=== PATIENT | male | born 1955 | race Caucasian/White ===

== ENCOUNTER 2023-01-29 05:09 | Observation (INO) ==
--- NOTE | 2023-01-07 11:30 | PAT Medication Instructions ---
Medication Instructions Date of Service January 07, 2023 Home Medications atorvastatin 10 mg tablet 10 mg PO QAM finasteride 5 mg tablet 5 mg PO QAM glipizide 5 mg tablet 5 mg PO BID levothyroxine 25 mcg tablet 25 mcg PO QAM meloxicam 15 mg tablet 15 mg PO QAM metformin 500 mg tablet 1,000 mg PO BID multivitamin 1 tab PO QAM tamsulosin 0.4 mg capsule 0.4 mg PO QAM ASK your surgeon for instructions meloxicam 15 mg tablet 15 mg PO QAM DO NOT take the morning of surgery glipizide 5 mg tablet 5 mg PO BID multivitamin 1 tab PO QAM Take morning of surgery With a small sip of water, OTHERWISE NOTHING TO EAT OR DRINK AFTER MIDNIGHT: atorvastatin 10 mg tablet 10 mg PO QAM finasteride 5 mg tablet 5 mg PO QAM levothyroxine 25 mcg tablet 25 mcg PO QAM tamsulosin 0.4 mg capsule 0.4 mg PO QAM Take evening before surgery glipizide 5 mg tablet 5 mg PO BID metformin 500 mg tablet 1,000 mg PO BID Other Notes If you have any questions please call us at [phone] or [phone] or [phone] or [phone]
--- NOTE | 2023-01-16 10:52 | Anesthesiology Consultation ---
Date of Service January 16, 2023 Assessment & Plan (1) Encounter for pre-operative examination: - check BSG am DOS. - Outpatient joint assessment: Patient is currently scheduled for inpatient pathway. If re-evaluated and patient/surgeon requests outpatient pathway, patient is acceptable candidate for outpatient joint program from anesthesia standpoint pending surgeon's office assessment of pt motivation/support/completion of same day joint program preop requirements. Chart Review Chart Review: Acceptable Risk for Surgery and Patient seen in Pre Admission Testing Teaching & Discussion Pre-Anesthesia Teaching/Discussion Notes: Instructed NPO after midnight before surgery, except medications with 15 cc of water. Medication instructions provided according to the PAT guidelines. History Surgery Operation Date: 01/29/23 09:50 Proposed Procedures p Right Total Knee Arthroplasty - Ace Back MD Height/Weight Height: 5 ft 11 in Weight: 86.3 kg Allergies Allergy/AdvReac Type Severity Reaction Status Date / Time No Known Allergies Allergy Verified 01/07/23 08:02 Medications Home Medications Medication Instructions Recorded Confirmed Last Taken atorvastatin 10 mg tablet 10 mg PO QAM 01/07/23 01/07/23 Unknown finasteride 5 mg tablet 5 mg PO QAM 01/07/23 01/07/23 Unknown glipizide 5 mg tablet 5 mg PO BID 01/07/23 01/07/23 Unknown levothyroxine 25 mcg tablet 25 mcg PO QAM 01/07/23 01/07/23 Unknown meloxicam 15 mg tablet 15 mg PO QAM 01/07/23 01/07/23 Unknown metformin 500 mg tablet 1,000 mg PO BID 01/07/23 01/07/23 Unknown multivitamin 1 tab PO QAM 01/07/23 01/07/23 Unknown tamsulosin 0.4 mg capsule 0.4 mg PO QAM 01/07/23 01/07/23 Unknown Past Medical History Medical History BPH (benign prostatic hyperplasia) Hypothyroidism Diabetes mellitus, type 2 NIDDM Hyperlipidemia Patient denies h/o stroke, seizures, heart attack, heart failure, HTN, blood clots/DVTs or blood transfusions. Exercise / Class Metabolic Activity II 4-5 Yardwork/Stairs/Walk up hill (denies chest discomfort or shortness of breath with 1 FOS) Past Family History Family History Other No family history of adverse response to anesthesia Past Surgical History Surgical History History of anesthesia reaction urinary retention History of carpal tunnel release left History of colonoscopy H/O inguinal hernia repair rt/left History of tooth extraction H/O partial thyroidectomy left>benign lump removed Past Anesthesia History No Family Hx of Anesthesia Complications and Other (urinary retention) History of PONV No Hx of PONV and No Hx of Motion Sickness Social History Smoking Status: Never smoker Do You Dip or Chew Tobacco: No Hx Alcohol Use: No substance use type: does not use Review of Systems Snoring, denies witnessed apneas. Patient denies chest pain, shortness of breath, dyspnea on exertion, reflux, fever, chills, cough, wheezing, or palpitations. Physical Exam Vital Signs Vitals BP 147/82 P 70 TEMP 98.2 SP02 94% on RA RESP 18 Physical Patient resting comfortably in chair in no acute distress, alert and oriented, responding appropriately throughout visit Full cervical extension range of motion without pain TMD 3.5 finger breadths Mallampati Score 2 Dentition: several caps/crowns, implant and bridges, denies chipped or loose teeth Lungs: normal respiratory effort. Good air movement, clear throughout to auscultation, no adventitious breath sounds Cardiac: regular rate and rhythm, no murmurs noted Carotid arteries: negative bruit bilat Lab Results Anesthesia Preop Results Results Anesthesia Widget: WBC 7.06 K/ul (4.8-10.8) 01/16/23 Hgb 15.9 g/dl (14.0-18.0) 01/16/23 Hct 44.9 % (42.0-52.0) 01/16/23 Plt 304 K/uL (130-400) 01/16/23 Na 141 mmol/L (136-145) 01/16/23 K 4.1 mmol/L (3.5-5.1) 01/16/23 Cl 106 mmol/L (98-107) 01/16/23 CO2 28 mmol/L (21-32) 01/16/23 BUN 17 mg/dl (6-23) 01/16/23 Creat 0.64 mg/dl (0.6-1.4) 01/16/23 Glucose Level 105 mg/dl (70-99(Fasting)) H 01/16/23 PT 10.9 Seconds (9.0-12.0) 01/16/23 PTT 26.9 Seconds (21.0-31.0) 01/16/23 INR 1.0 (0.9-1.1) 01/16/23 Urine Color Yellow 01/16/23 Urine Appearance Clear (Clear) 01/16/23 Urine pH 8.0 (4.5-7.5) H 01/16/23 Urine Specific [place] 1.017 (1.000-1.030) 01/16/23 Urine Protein Negative (Negative) 01/16/23 Urine Glucose (UA) Negative (Negative) 01/16/23 Urine Ketones Negative (Negative) 01/16/23 Urine Blood Negative (Negative) 01/16/23 Urine Nitrite Negative (Negative) 01/16/23 Urine Bilirubin Negative (Negative) 01/16/23 Urine Urobilinogen Negative (Negative) 01/16/23 Urine Leukocyte Esterase Negative (Negative) 01/16/23 Blood Type AB Positive 01/16/23 Antibody Screen NEGATIVE 01/16/23 Testing Laboratory Results A1c 7.2% 01/03/23 Electrocardiogram Date: 01/16/23 Sinus rhythm with premature ventricular complexes, rate 68 bpm Chest X-Ray Date: 01/16/23 No active disease in the chest.
--- NOTE | 2023-01-24 08:39 | History & Physical Report ---
Date of Service January 24, 2023 Assessment & Plan (1) Primary osteoarthritis of right knee: Plan: Treatment options discussed with the patient and they wish to proceed with surgical management. Risks, benefits and alternatives to surgery including but not limited to infection, DVT, pain, stiffness, need for revision surgery, damage to blood vessels, damage to nerves, PE, , were discussed with the patient and they wish to proceed. Plan on right total knee arthroplasty scheduled for January 29 at [facility] with Dr. aBck. Plan on outpatient physical therapy postop. Plan on aspirin 81 mg twice daily for 1 month postop for DVT prophylaxis. All questions answered. Patient will follow-up postoperatively. History of Present Illness Chief Complaint: Right knee pain Primary Care Provider: Dom Del Valle, 67-year-old male with past medical history significant for diabetes, hypothyroidism, high cholesterol who presents with ongoing bilateral knee pain. Right knee is more symptomatic than the left. Pain is interfering with his daily activities. He has failed conservative measures including steroid injections. He would like to proceed with with staged bilateral knee replacements. We will start with the right knee. Patient denies headaches, sweats, fevers, chills, double vision, blurred vision, cough, sore throat, dysphagia, chest pain, sob, wheezing, n/v/d/c, numbness, tingling, fatigue, urinary symptoms, mood disorders. ROS positive for bilateral knee pain and stiffness. Allergies Allergy/AdvReac Type Severity Reaction Status Date / Time No Known Allergies Allergy Verified 01/07/23 08:02 Home Medications Medication Instructions Recorded Confirmed Type atorvastatin 10 mg tablet 10 mg PO QAM 01/07/23 01/07/23 History finasteride 5 mg tablet 5 mg PO QAM 01/07/23 01/07/23 History glipizide 5 mg tablet 5 mg PO BID 01/07/23 01/07/23 History levothyroxine 25 mcg tablet 25 mcg PO QAM 01/07/23 01/07/23 History meloxicam 15 mg tablet 15 mg PO QAM 01/07/23 01/07/23 History metformin 500 mg tablet 1,000 mg PO BID 01/07/23 01/07/23 History multivitamin 1 tab PO QAM 01/07/23 01/07/23 History tamsulosin 0.4 mg capsule 0.4 mg PO QAM 01/07/23 01/07/23 History Past Med/Surg History Medical History BPH (benign prostatic hyperplasia) Hypothyroidism Diabetes mellitus, type 2 NIDDM Hyperlipidemia Surgical History History of anesthesia reaction urinary retention History of carpal tunnel release left History of colonoscopy H/O inguinal hernia repair rt/left History of tooth extraction H/O partial thyroidectomy left>benign lump removed Family History Other No family history of adverse response to anesthesia Social History Smoking Status: Never smoker Second Hand Exposure: No; Do You Dip or Chew Tobacco: No; Hx Alcohol Use: No Preferred Language: Hungarian Cart Attendant Required: No Beliefs That Will Affect Care: None Current Living Situation: Spouse Feels Safe at Home: Yes Safety Concerns: Feels Safe At This Time Assistive Devices: Glasses Assistive Devices Comment: reading glasses Review of Systems All systems reviewed & are unremarkable except as noted in HPI & below Physical Exam Constitutional: well developed and well nourished; no acute distress Eyes: PERRL, conjunctivae normal, anicteric sclerae ENMT: external ear and nose normal, oropharynx normal Neck: trachea midline, no thyromegaly Respiratory: normal respiratory effort, lungs clear to auscultation Cardiovascular: RRR, no murmur, no edema Musculoskeletal: Right knee: Varus alignment. Moderate effusion. Tenderness medial joint line. Increased laxity with valgus and varus stress test. Range of motion is 10 to 110 degrees. Skin: no rashes, warm and dry Neurologic: patellar DTR's 2+ bilat, sensation intact Psychiatric: A+Ox3, euthymic affect Results & Data Diagnostic Findings Right knee radiographs demonstrate severe end-stage osteoarthritis, [id number] medial and lateral compartments. There is mild subluxation of the femur on the tibia. There is mild bone loss. There are periarticular osteophytes.
[2023-01-29] MEDS ORDERED: LR 500ML BOLUS, THEN 15ML/HR IV SCH (06:00)
[2023-01-29] MEDS ORDERED: METOCLOPRAMIDE HCL 10 MG TABLET PO SCH (06:00)
[2023-01-29] MEDS ORDERED: ACETAMINOPHEN 500 MG TAB PO SCH (06:00)
[2023-01-29] MEDS ORDERED: TRANEXAMIC ACID 1,000 MG **IV Pre-op IV SCH (06:00)
[2023-01-29] MEDS ORDERED: LR 60ML/HR IV SCH (06:00)
[2023-01-29] MEDS ORDERED: GABAPENTIN 300 MG CAP PO SCH (06:00)
[2023-01-29] MEDS ORDERED: FAMOTIDINE 20 MG TAB PO SCH (06:00)
[2023-01-29] MEDS ORDERED: CeleBREX 200 MG CAP PO SCH (06:00)
[2023-01-29] MEDS ORDERED: ROPIVACAINE 0.5% HCL/PF 150 MG, BUPIVACAINE 0.75% MPF 20 ML, EPINEPHrine 30MG/30ML (OR ... INFIL SCH (06:00)
[2023-01-29] MEDS ORDERED: ceFAZolin 2000MG 2,000 MG/15 ML SYR IV SCH (06:00)
[2023-01-29] MEDS ORDERED: TRANEXAMIC ACID 1,000 MG **IV Intra-op IV SCH (06:00)
[2023-01-29] MEDS ORDERED: ROPIVACAINE 0.5% 5 MG/ML 30 ML VIAL ONE (06:25)
[2023-01-29] MEDS ORDERED: MIDAZOLAM HCL 1 MG/ML 2ML VIAL ONE (06:43)
[2023-01-29] MEDS ORDERED: ATROPINE SULFATE 0.1 MG/ML 10ML SYR IV PRN (06:48)
[2023-01-29] MEDS ORDERED: ePHEDrine sulfate 50 MG/ML AMP IV PRN (06:48)
[2023-01-29] MEDS ORDERED: KETOROLAC 30 MG/ML VIAL IV PRN (06:48)
[2023-01-29] MEDS ORDERED: ONDANSETRON INJ 2 MG/ML 2 ML VIAL IV PRN ×2 (06:48→12:33)
[2023-01-29] MEDS ORDERED: HYDROmorphone INJ 1 MG/ML SYRINGE IV PRN (06:48)
--- NOTE | 2023-01-29 07:04 | History & Physical Bridge Note ---
Date of Service January 29, 2023 History & Physical Bridge Note I have examined the patient, reviewed the History & Physical and in the interval since the performance of the History & Physical I have noted the following changes of clinical significance: no changes noted
[2023-01-29] MEDS ORDERED: ORTHO JOINT ANESTHETIC ONE (07:09)
[2023-01-29] MEDS ORDERED: PROPOFOL IV EMULSION 10 MG/ML 20 ML VIAL IV ONE ×2 (07:38→08:50)
[2023-01-29] MEDS ORDERED: ONDANSETRON INJ 2 MG/ML 2 ML VIAL ONE (07:38)
[2023-01-29] MEDS ORDERED: ePHEDrine sulfate 50 MG/5 ML SYR ONE (07:47)
[2023-01-29] MEDS ORDERED: PHENYLEPHRINE 100MCG/ML 10ML SYR IV ONE (07:51)
[2023-01-29] MEDS ORDERED: DexMEDEtomidine HCL IV 100 MCG/ML VIAL IV ONE (08:25)
[2023-01-29] MEDS ORDERED: PHENYLEPHRINE HCL 10 MG/ML VIAL ONE (08:40)
--- NOTE | 2023-01-29 09:25 | Operative Report ---
Post Operative Report Pre & Post Diagnosis Operation Date: 01/29/23 07:15 Pre-Op Diagnosis: Right Knee Osteoarthritis Post-Op Diagnosis: Right Knee Osteoarthritis I identified the patient and participated in the time-out.: Yes Procedure Operation Date: 01/29/23 07:15 Actual Procedures p Right Total Knee Arthroplasty(Right), hoda Acticoat superficial wound VAC application- Ace Back MD Surgeon Ace Back MD Recovery Specialist Neto KEY Estimated Blood Loss 5 Findings Consistent with Post-Op Diagnosis Specimens Bone cuts Drains 2 Hemovac Anesthesia Type MAC Spinal Regional Complications none Disposition Disposition: Recovery Room Indications 67-year-old male with chronic bilateral knee pain and stiffness. Radiographs demonstrate severe bilateral knee osteoarthritis with varus knees and bone loss medial compartment left greater than right. Description of Procedure Patient taken to the operating room the size under spinal MAC regional block anesthesia. Patient was placed supine on the operating table. A pneumatic tourniquet was placed about the right upper thigh. The right lower extremity was prepped and draped in sterile fashion. Knee exam demonstrated flexion contracture about 10 degrees with further flexion to 110 degrees. Mild pseudolaxity. The leg was elevated exsanguinated with an Esmarch bandage and pneumatic tourniquet was raised to 300 millimeters of mercury. Skin incised sharply in longitudinal fashion. Subcutaneous flaps elevated. Incision was made through the medial retinaculum extending up in the mid third of the quadriceps tendon and down to the medial tibial tubercle. Intra-articular findings demonstrated severe osteoarthritis with eburnated bone and bone loss in the medial compartment with some increased posterior slope on the tibia and chronic medial meniscus tear and lateral meniscus tear and ACL tear with moderate patellofemoral osteoarthritis.. The Gena [employer] persona total knee arthroplasty system was used with posterior stabilized knee replacement. To expose the knee the infrapatellar fat pad was resected. The meniscal remnants and posterior cruciate ligament were resected. The anterior fat pad over the femur in the area of the location of the anterior flange of the femoral component was resected. The lateral synovial bands were released. The femur was exposed. An intramedullary drill hole was made into the canal. A guide sue was placed. Distal femoral cutting guide was adjusted to resect a 5 degree valgus cut with additional +2 millimeters distal femur resected due to flexion contracture from standard cut. The knee was extended and a subperiosteal peel lateral release was performed around the patella. Patella width was measured and width was reproduced using a freehand cut technique and a 38 patella component. The 3 drill holes were made and the excess lateral facet was beveled off to prevent any impingement. Attention was taken back to the femur which was exposed with retractors and the femoral sizing guide was pinned in position. The drill holes were placed in 3 of external rotation to match the epicondylar axis. The femur sized for a 11 component. The 4-in-1 cutting block was placed and then the anterior posterior and chamfer cuts are made. The tibia was then subluxed. The external tibial cutting guide was adjusted to make a perpendicular cut to the long axis of the tibia below the majority of the most deficient bone loss side medially leaving a very small crescent posterior medially below the level of the cut. Osteophytes were resected with a rongeur medially.. A lamina vamp cut out worker was used and the flexion extension gaps were balanced. No releases were required. All posterior osteophytes removed. All meniscal remnants were resected. The tibia exposed and the trial tibial component size H was externally rotated in line with the tibial tubercle and pinned in position. With external rotation the small crescent area was posterior to the medial posterior aspect of the implant and was not an issue. The drill followed by the the punch for stem was used. The notch cutting device was centered appropriately and the femoral notch cut was made. The femoral trial was inserted. Trial tibial inserts were placed and size 14 CPS gave balanced ligaments through flexion and extension. Patella tracking was assessed. The patella tracked centrally. The trial components were then removed and the orthomix anesthetic cocktail was injected per protocol. The knee was then copiously irrigated with pulsatile lavage saline solution. Final components were then cemented with Refobacin cement. Final components were Gena persona 11 standard PS right femur, H right tibia, 14 CPS right tibial polyethylene, 38 symmetrical polyethylene patella. After the cement cured further pulsatile lavage irrigation was then performed with Xperience and 2 Hemovac drains were brought out laterally. The quadriceps tendon and medial retinaculum were closed with figure of 8 #1 Vicryl sutures. The knee was taken through full range of motion and the repair was secure. Knee range of motion was 0 through 130 degrees. the subcutaneous tissues were closed with 2-0 Vicryl sutures. Skin was closed with abraham. Hoda and Acticoat superficial wound VAC was applied. The patient tolerated the procedure well. Neto KEY was my physician nutrition assistant who participated as patient assistant and was involved in all aspects of the procedure including patient positioning prepping and draping,leg positioning ,soft tissue retraction and instrument management and performed the closing and wound VAC application and will participate in postoperative care of the patient. The patient tolerated the procedure well. I attest to the content of the Intraoperative Record and any orders documented therein. Any exceptions are noted below.
--- NOTE | 2023-01-29 11:01 | XRay Report ---
RIGHT KNEE 2 VIEWS History: Right total knee arthroplasty. Degenerative arthritis. Postop. FINDINGS: The patient is status post a right total knee arthroplasty. The hardware is intact. No frac ture or dislocation. Skin abraham and surgical drains are in place. There are few punctate metallic d ensities anterior to the proximal tibia. IMPRESSION: Right total knee arthroplasty. No evidence for hardware complication. ACT 112: Negative or not required by law. Electronically signed by: Graham Berrios M.D. 01/29/2023 11:00 AM
--- NOTE | 2023-01-29 11:27 | Anesthesiology Progress Note ---
Date of Service January 29, 2023 Anesthesia Post Procedure Vital Signs Vital Signs: Temp Pulse Pulse Resp BP Pulse Ox O2 Del Method 01/29/23 11:00 63 16 106/63 95 Nasal Cannula 01/29/23 10:40 36.6 C 67 19 98/58 L 95 Nasal Cannula 01/29/23 10:30 63 12 106/59 L 92 Nasal Cannula 01/29/23 10:20 75 18 94/65 L 92 Nasal Cannula 01/29/23 10:10 77 17 106/66 96 Oxymask 01/29/23 10:00 74 17 115/61 93 Oxymask 01/29/23 09:51 36.7 C 80 18 96/58 L 94 Oxymask 01/29/23 05:30 36.7 C 74 18 160/89 H 96 Room Air O2 Flow Rate 01/29/23 11:00 2 01/29/23 10:40 2 01/29/23 10:30 2 01/29/23 10:20 2 01/29/23 10:10 5 01/29/23 10:00 5 01/29/23 09:51 5 01/29/23 05:30 Transfer of Care Handoff Completed per policy Notes Mental Status: alert / awake / arousable Patient Amnestic to Procedure: Yes Nausea / Vomiting: adequately controlled Pain: adequately controlled Airway Patency, RR, SpO2: stable & adequate BP & HR: stable & adequate Hydration State: stable & adequate Neuraxial Anesthesia: was administered and sensory block is resolving Anesthetic Complications: no major complications apparent
[2023-01-29] MEDS ORDERED: NALOXONE HCL 0.4 MG/1 ML VIAL/CARP IV PRN (12:33)
[2023-01-29] MEDS ORDERED: MAGNESIUM HYDROXIDE SUSP 30 ML UDC PO PRN (12:33)
[2023-01-29] MEDS ORDERED: PHARMACY GLYCEMIC MGMT CONSULT PRN (12:33)
[2023-01-29] MEDS ORDERED: METOCLOPRAMIDE HCL INJ 5 MG/ML 2 ML VIAL IV PRN (12:33)
[2023-01-29] MEDS ORDERED: bisacodyL 10 MG SUPP PR PRN (12:33)
[2023-01-29] MEDS ORDERED: HYDROmorphone INJ 0.5 MG/0.5 ML SYR IV PRN (12:33)
--- NOTE | 2023-01-29 12:43 | Hospitalist Consultation ---
Date of Consultation January 29, 2023 Assessment & Plan (1) Primary osteoarthritis of right knee: s/p right total knee arthroplasty VTE/bowel/pain management per primary orthopedic team (2) Diabetes mellitus, type 2: HbA1C - thinks last one was 7.3 around 3 weeks ago but influenced by steroid shots Pharmacy consulted by primary team for glycemic control while inpatient Pending repeat HbA1C in Am will determine if any changes need to be made on discharge (3) Hypothyroidism: No prior TSH to review Continue levothyroxine 25 mcg PO daily (4) BPH (benign prostatic hyperplasia): Continue tamsulosin and finasteride (5) Hyperlipidemia: Continue atorvastatin Plan Thank you for the consult. We will review the patient tomorrow with post operative labs. History of Present Illness Reason for Consultation: post op management Attending Physician: Ace Back MD History of Present Illness Demetri Brizuela is a 67 year old male POD#0 right total knee arthroplasty. Estimated blood loss 5ml. No complications. No concerns or questions from the patient. He reports doing well post operatively. No prior history of heart attacks, stroke or congestive heart failure. No primary care notes available to review in EHR. Allergies Allergy/AdvReac Type Severity Reaction Status Date / Time No Known Allergies Allergy Verified 01/29/23 05:39 Home Medications Medication Instructions Recorded Confirmed Type atorvastatin 10 mg tablet 10 mg PO QAM 01/07/23 01/29/23 History finasteride 5 mg tablet 5 mg PO QAM 01/07/23 01/29/23 History glipizide 5 mg tablet 5 mg PO BID 01/07/23 01/29/23 History levothyroxine 25 mcg tablet 25 mcg PO QAM 01/07/23 01/29/23 History meloxicam 15 mg tablet 15 mg PO QAM 01/07/23 01/29/23 History metformin 500 mg tablet 1,000 mg PO BID 01/07/23 01/29/23 History multivitamin 1 tab PO QAM 01/07/23 01/29/23 History tamsulosin 0.4 mg capsule 0.4 mg PO QAM 01/07/23 01/29/23 History acetaminophen 500 mg tablet 1,000 mg (2 x 500 mg) PO Q8 #60 01/30/23 Rx (Tylenol Extra Strength) tabs aspirin 81 mg tablet,delayed 81 mg PO BID #60 tabs 01/30/23 Rx release cefadroxil 500 mg capsule 500 mg PO BID #28 caps 01/30/23 Rx celecoxib 200 mg capsule (Celebrex) 200 mg PO BID #60 caps 01/30/23 Rx oxycodone 5 mg tablet 5 - 10 mg (1 - 2 x 5 mg) PO 01/30/23 Rx .Q4h-6h PRN pain #30 tabs Patient History Medical History (Updated 01/29/23 @ 12:44 by Isaac Herrera MD) BPH (benign prostatic hyperplasia) Hypothyroidism Diabetes mellitus, type 2 NIDDM Hyperlipidemia Surgical History History of anesthesia reaction urinary retention History of carpal tunnel release left History of colonoscopy H/O inguinal hernia repair rt/left History of tooth extraction H/O partial thyroidectomy left>benign lump removed Family History Other No family history of adverse response to anesthesia Social History Smoking Status: Never smoker Second Hand Exposure: No; Do You Dip or Chew Tobacco: No; Hx Alcohol Use: No Preferred Language: Spanish Production Manufacturing Worker Required: No Beliefs That Will Affect Care: None Current Living Situation: Spouse Feels Safe at Home: Yes Safety Concerns: Feels Safe At This Time Assistive Devices: Glasses Assistive Devices Comment: reading glasses Review of Systems Review of Systems: All systems reviewed & are unremarkable except as noted in HPI & below Physical Exam Constitutional: WD/WN, vitals as above Respiratory: normal respiratory effort, lungs clear to auscultation Cardiovascular: RRR, no murmur, no edema Gastrointestinal (Abdomen): normal bowel sounds, soft, nontender, no hepatosplenomegaly Results & Data Results & Data Vital Signs (Past 12 Hours) Vital Signs Temp Pulse Pulse Resp BP Pulse Ox O2 Del Method 01/29/23 12:00 64 20 111/60 95 Nasal Cannula 01/29/23 11:30 60 17 95/67 L 97 Nasal Cannula 01/29/23 11:00 63 16 106/63 95 Nasal Cannula 01/29/23 10:40 36.6 C 67 19 98/58 L 95 Nasal Cannula 01/29/23 10:30 63 12 106/59 L 92 Nasal Cannula 01/29/23 10:20 75 18 94/65 L 92 Nasal Cannula 01/29/23 10:10 77 17 106/66 96 Oxymask 01/29/23 10:00 74 17 115/61 93 Oxymask 01/29/23 09:51 36.7 C 80 18 96/58 L 94 Oxymask 01/29/23 05:30 36.7 C 74 18 160/89 H 96 Room Air O2 Flow Rate 01/29/23 12:00 2 01/29/23 11:30 2 01/29/23 11:00 2 01/29/23 10:40 2 01/29/23 10:30 2 01/29/23 10:20 2 01/29/23 10:10 5 01/29/23 10:00 5 01/29/23 09:51 5 01/29/23 05:30 Laboratory Results Abnormal lab results 01/29/23 01/29/23 Range/Units 05:41 10:31 POC Glucose 150 H 181 H (70-99) mg/dl PG Care Time/CCT Total # of Minutes Spent Total Time Spent with Patient: Total time spent is greater than 50% in coordination of care (as documented) at patient's floor/unit and/or counseling patient: Coding Level of Care Code 18477 IN/OBS CONSULT LVL 3,45M Diagnoses Primary osteoarthritis of right knee M17.11 Diabetes mellitus, type 2 E11.9 Hypothyroidism E03.9 BPH (benign prostatic hyperplasia) N40.0 Hyperlipidemia E78.5
[2023-01-29] MEDS: SODIUM CHLORIDE 0.9% 1,000 ML IV SCH (12:52)
[2023-01-29] MEDS ORDERED: DEXTROSE 50% 50 ML SYRINGE IV PRN (13:15)
[2023-01-29] MEDS ORDERED: GLUCOSE 10 TAB/TUBE PO PRN (13:15)
[2023-01-29] MEDS ORDERED: CARBOHYDRATES FOR HYPOGLYCEMIA PO PRN (13:15)
[2023-01-29] MEDS ORDERED: GLUCAGON FOR INJ 1 MG VIAL IM PRN (13:15)
[2023-01-29] MEDS ORDERED: GLUCOSE 40% GEL 15 GM TUBE PO PRN (13:15)
[2023-01-29] MEDS: INSULIN ASPART PER UNIT CHARGE SC SCH ×3 (13:25→21:10)
[2023-01-29] MEDS: ACETAMINOPHEN 500 MG TAB PO SCH ×2 (13:31→21:08)
--- NOTE | 2023-01-29 14:32 | Pharmacy Report ---
Pharmacy Glycemic Short Note 2 - Date of Service January 29, 2023 - Glycemic Short BSG Results (Last 24 hours): 01/29/23 01/29/23 01/29/23 05:41 10:31 12:51 POC Glucose 150 H 181 H 163 H OUTPATIENT ANTIDIABETIC REGIMEN: * glipizide 5mg PO BID * metformin 1gm PO BID HbA1C:__ ASSESSMENT: * Pt is a 67 year old male admitted s/p R total knee arthroplasty. History of DM2 on PO medications at home. Pharmacy consulted to assist with glycemic management while inpatient. * BSGs [phone]/dL pre and post op. Diet ordered. No intra-op steroids documented. * Initiate Novolog moderate stress scale ACHS w/ overnight checks. Hold basal for now. PLAN FOR INPATIENT GLYCEMIC CONTROL: * Hold outpatient oral diabetes medications * Basal insulin * hold * Bolus insulin * NovoLog per scale ACHS or Q6hrs while NPO * Goal Range: Low 110 mg/dL - High 140 mg/dL * Correction Factor: 30 mg/dL/unit * Nutritional / Prandial insulin per carb ratio of 1 unit per 10 grams CHO consumed
[2023-01-29] MEDS: ceFAZolin 2000MG 2,000 MG/15 ML SYR IV SCH ×2 (16:21→23:55)
[2023-01-29] MEDS: DOCUSATE SODIUM 100 MG CAP PO SCH (21:08)
[2023-01-29] MEDS: ASPIRIN 81 MG ECTAB PO SCH (21:08)
[2023-01-29] MEDS: SENNA 8.6 MG TAB PO SCH (21:08)
[2023-01-29] MEDS: CeleBREX 200 MG CAP PO SCH (21:08)
[2023-01-29] MEDS: oxyCODONE HCL IR 5 MG TAB (IMMEDIATE RELEASE) PO PRN (23:57)
[2023-01-30] MEDS: SODIUM CHLORIDE 0.9% 1,000 ML IV SCH (00:07)
[2023-01-30] MEDS: INSULIN ASPART PER UNIT CHARGE SC SCH ×6 (05:54→21:23)
[2023-01-30] MEDS: oxyCODONE HCL IR 5 MG TAB (IMMEDIATE RELEASE) PO PRN ×2 (05:56→11:53)
[2023-01-30] MEDS: ACETAMINOPHEN 500 MG TAB PO SCH ×3 (05:57→21:23)
[2023-01-30] MEDS: LEVOTHYROXINE SODIUM 25 MCG TABLET PO SCH (05:57)
[2023-01-30] MEDS: ASPIRIN 81 MG ECTAB PO SCH ×2 (06:02→20:27)
[2023-01-30] MEDS: ATORVASTATIN 10 MG TAB PO SCH (06:02)
[2023-01-30] MEDS: FINASTERIDE 5 MG TAB PO SCH (06:03)
[2023-01-30] MEDS: DOCUSATE SODIUM 100 MG CAP PO SCH ×3 (06:03→20:27)
[2023-01-30] MEDS: MULTIVITAMIN TAB PO SCH (06:03)
[2023-01-30] MEDS: CeleBREX 200 MG CAP PO SCH ×2 (06:03→20:27)
[2023-01-30] MEDS: TAMSULOSIN HCL 0.4 MG CAP PO SCH (06:03)
[2023-01-30 06:30] LABS: Hematocrit (blood only) 38.4 % (42.0-52.0); Mean Corpuscular Hgb Conc 33.9 g/dL (32.0-36.0); Mean Corpuscular Volume 94.6 fL (80.0-100.0); Mean Platelet Volume 11.1 fL (9.4-12.4); Platelet Count 277 K/uL (130-400); RDW Standard Deviation 42.1 fL (36.4-46.3); Red Blood Count 4.06 M/uL (4.70-6.10); White Blood Count 10.36 K/ul (4.8-10.8)
[2023-01-30 07:03] LABS: BUN Creatinine Ratio 26.8 (10-20); Calcium 8.6 mg/dl (8.6-10.3); Creatinine Clr Calc Pharmacy 107.5 ml/min; Est GFR (African American) 112.5 ml/min; Est GFR (Non-African American) 97.1 ml/min; Potassium 4.5 mmol/L (3.5-5.1)
[2023-01-30 07:04] LABS: Estimated Average Glucose 154 mg/dl
--- NOTE | 2023-01-30 07:35 | Orthopedic Progress Note ---
Date of Service January 30, 2023 Assessment & Plan (1) Primary osteoarthritis of right knee: Plan: Postop day #1 right total knee arthroplasty -PT/OT -Pain management as written -DVT prophylaxis: SCDs, teds, aspirin 81 mg twice daily -A.m. labs: Hemoglobin 13 from 15 preop, acute blood loss anemia due to surgical loss versus dilutional. Patient is asymptomatic. -Discharge planning: Plan on discharge home with outpatient therapy. Hemovac output 150 left shift. Will monitor through the morning. Patient also has some urinary retention requiring straight cath. If retention resolves and Hemovac output slows down plan to discharge home this afternoon, otherwise plan on discharge home tomorrow. Admission and Anticipated Discharge Date Admission Date: January 29, 2023 Subjective Patient is postop day 1 right total knee. Overall he is feeling well. Did have to have straight cath this morning due to retention. Pain is controlled. No other complaints. Denies chest pain, shortness of breath, nausea/diarrhea, headaches or dizziness. Review of Systems Review of Systems: All systems reviewed & are unremarkable except as noted in Subjective Physical Exam Physical Exam: Right knee: Dressing is clean, dry, intact. Toes are mobile with good dorsiflexion. No calf tenderness. Able to do a straight leg raise. Distal neurovascular Natacyn sensation is grossly intact. Constitutional: WD/WN, vitals as above Results & Data Vital Signs (Past 12 Hours) Vital Signs Temp Pulse Resp BP Pulse Ox O2 Del Method 01/30/23 07:25 36.8 C 70 18 115/62 94 Room Air 01/30/23 02:38 36.7 C 67 18 112/65 92 Room Air 01/29/23 22:39 36.8 C 65 18 114/64 95 Room Air 01/29/23 19:56 36.7 C 70 18 121/71 94 Room Air 01/29/23 19:45 Room Air Laboratory Results Lab Results 01/29/23 01/29/23 01/29/23 Range/Units 05:41 10:31 12:51 WBC (4.8-10.8) K/ul RBC (4.70-6.10) M/uL Hgb (14.0-18.0) g/dl Hct (42.0-52.0) % MCV (80.0-100.0) fL MCH (25.0-34.0) pg MCHC (32.0-36.0) g/dL RDW Std Deviation (36.4-46.3) fL RDW Coeff of Manish (11.5-14.5) % Plt Count (130-400) K/uL MPV (9.4-12.4) fL Sodium (136-145) mmol/L Potassium (3.5-5.1) mmol/L Chloride (98-107) mmol/L Carbon Dioxide (21-32) mmol/L Anion Gap (3-11) BUN (6-23) mg/dl Creatinine (0.6-1.4) mg/dl Est Cr Clr Drug Dosing ml/min Est GFR ( Amer) ml/min Est GFR (Non-Af Amer) ml/min BUN/Creatinine Ratio (10-20) Glucose (70-99(Fasting)) mg/dl POC Glucose 150 H 181 H 163 H (70-99) mg/dl Estimat Average Glucose mg/dl Hemoglobin A1c (4.5-5.6) % Calcium (8.6-10.3) mg/dl 01/29/23 01/29/23 01/29/23 Range/Units 16:25 20:41 23:50 WBC (4.8-10.8) K/ul RBC (4.70-6.10) M/uL Hgb (14.0-18.0) g/dl Hct (42.0-52.0) % MCV (80.0-100.0) fL MCH (25.0-34.0) pg MCHC (32.0-36.0) g/dL RDW Std Deviation (36.4-46.3) fL RDW Coeff of Manish (11.5-14.5) % Plt Count (130-400) K/uL MPV (9.4-12.4) fL Sodium (136-145) mmol/L Potassium (3.5-5.1) mmol/L Chloride (98-107) mmol/L Carbon Dioxide (21-32) mmol/L Anion Gap (3-11) BUN (6-23) mg/dl Creatinine (0.6-1.4) mg/dl Est Cr Clr Drug Dosing ml/min Est GFR ( Amer) ml/min Est GFR (Non-Af Amer) ml/min BUN/Creatinine Ratio (10-20) Glucose (70-99(Fasting)) mg/dl POC Glucose 168 H 148 H 145 H (70-99) mg/dl Estimat Average Glucose mg/dl Hemoglobin A1c (4.5-5.6) % Calcium (8.6-10.3) mg/dl 01/30/23 01/30/23 Range/Units 05:54 07:28 WBC 10.36 (4.8-10.8) K/ul RBC 4.06 L (4.70-6.10) M/uL Hgb 13.0 L (14.0-18.0) g/dl Hct 38.4 L (42.0-52.0) % MCV 94.6 (80.0-100.0) fL MCH 32.0 (25.0-34.0) pg MCHC 33.9 (32.0-36.0) g/dL RDW Std Deviation 42.1 (36.4-46.3) fL RDW Coeff of Manish 12.0 (11.5-14.5) % Plt Count 277 (130-400) K/uL MPV 11.1 (9.4-12.4) fL Sodium 136 (136-145) mmol/L Potassium 4.5 (3.5-5.1) mmol/L Chloride 106 (98-107) mmol/L Carbon Dioxide 25 (21-32) mmol/L Anion Gap 5 (3-11) BUN 19 (6-23) mg/dl Creatinine 0.71 (0.6-1.4) mg/dl Est Cr Clr Drug Dosing 107.5 ml/min Est GFR ( Amer) 112.5 ml/min Est GFR (Non-Af Amer) 97.1 ml/min BUN/Creatinine Ratio 26.8 H (10-20) Glucose 158 H (70-99(Fasting)) mg/dl POC Glucose 246 H (70-99) mg/dl Estimat Average Glucose 154 mg/dl Hemoglobin A1c 7.0 H (4.5-5.6) % Calcium 8.6 (8.6-10.3) mg/dl
--- NOTE | 2023-01-30 08:00 | Hospitalist Progress Note ---
Date of Service January 30, 2023 Assessment & Plan (1) Primary osteoarthritis of right knee: Plan: s/p right total knee arthroplasty with Dr Back on 01/29. EBL 5cc Pain regimen/bowel regimen/PT/OT per primary service DVT proph w/ ASA 81mg BID WBC 10.3k, afebrile Hgb 15.9--> 13.0. * Acute blood loss anemia from surgery (hemovac reporting 850cc output)/some component of dilutional aspect from IVF post-op as well suspected.--nursing noting attempted to get patient up post-op 01/29 and patient w/ weakness in his knee and buckled a little. notified ortho of such * Patient did have some lightheadedness x 1 w/ therapy, nothing further. Discussed best likely to monitor hemovac output/CBC in AM. Would repeat sooner this afternoon if significant hemovac output or symptoms consider holding further celebrex -- will message ortho to see about holding further some urinary retention overnight -- monitoring for any continued issues. He did report urinating since that time and emptying his bladder. Bladder scan as needed CBC/BMP in AM (2) Diabetes mellitus, type 2: Plan: HbA1C - thinks last one was 7.3 around 3 weeks ago but influenced by steroid shots Pharmacy consulted by primary team for glycemic control while inpatient Repeat A1c 7.0 BSGs acceptable Can resume metformin at dc (3) Hypothyroidism: Plan: No prior TSH to review Continue levothyroxine 25 mcg PO daily (4) BPH (benign prostatic hyperplasia): Plan: Continue tamsulosin and finasteride Did have some urinary retention post-op requiring straight cath but reporting urinating since that time/emptying his bladder Bladder scan as needed if any further retention Monitor UOP (5) Hyperlipidemia: Plan: Continue atorvastatin Plan Thank you for the consult. Hospitalist service will follow along - rec continued monitoring of hemovac output/any symptoms requiring sooner repeat of blood count. Please call with any questions/concerns. Admission and Anticipated Discharge Date Admission Date: January 29, 2023 Supervising Physician Co-Signing Physician Notes The patient was not seen by me. The chart was reviewed. Case discussed with SHAHID Mendez. Agree with assessment and plan Subjective Eval this morning, did have buckling with knees directly post-op. Hemovac output discussed. Patient did well w/ therapy but only half the duvall the second time due to dizziness. He notes he doesn't have any of those symptoms at present. Drain emptied couple hours ago, currently about half full. Discussed continued inpatient stay/monitoring hemoglobin/output. Will repeat labs sooner if any symptoms but continue current course for now. got up to go to bathroom after st cath this morning and he thinks he emptied his bladder pretty good. Discussed to let nursing know of any abdominal fullness/bladder scan as needed. He notes similar retention issues after having his thyroid out. Encouraged use of incentive spirometer. Faint exp wheeze R base, no cough/sputum production or hx asthma/COPD. No fever/chills, chest pain, shortness of breath, palpitations, abdominal pain, nausea or vomiting at present time. Questions/concerns addressed at this time. Hopeful for dc tomorrow. Physical Exam 2 Physical Exam: General: WD/WN male sitting up in bed, at bedside, NAD HEENT: head atraumatic, normocephalic, mmm, trachea midline Resp: even, unlabored, no tachypnea, diminished in the bases, faint expiratory wheeze R base, on room air CV: RRR< no significant m/r/g, no pitting edema/calf tenderness, pulses palpable GI: +BS, soft/NT : no miller MSK/Neuro: dressing/shania wrap to RIGHT knee, hemovac w/ bloody drainage (about half full 1015am), compartments soft, toes mobile, dorsiflexion/plantar flexion intact. sensation intact Psych: AOx3, cooperative with exam Results & Data Results & Data Vital Signs (Past 12 Hours) Vital Signs Temp Pulse Resp BP Pulse Ox O2 Del Method 01/30/23 07:25 36.8 C 70 18 115/62 94 Room Air 01/30/23 02:38 36.7 C 67 18 112/65 92 Room Air 01/29/23 22:39 36.8 C 65 18 114/64 95 Room Air 01/29/23 19:56 36.7 C 70 18 121/71 94 Room Air Laboratory Results 01/30/23 05:54 01/30/23 05:54 Diagnostic Findings Knee X-Ray 01/29/23 09:49 RIGHT KNEE 2 VIEWS History: Right total knee arthroplasty. Degenerative arthritis. Postop. FINDINGS: The patient is status post a right total knee arthroplasty. The hardware is intact. No fracture or dislocation. Skin abraham and surgical drains are in place. There are few punctate metallic densities anterior to the proximal tibia. IMPRESSION: Right total knee arthroplasty. No evidence for hardware complication. ACT 112: Negative or not required by law. Electronically signed by: Graham Berrios M.D. 01/29/2023 11:00 AM PG Care Time/CCT Total # of Minutes Spent Total Time Spent with Patient: Total time spent is greater than 50% in coordination of care (as documented) at patient's floor/unit and/or counseling patient: Coding Level of Care Code 94468 SUB INP/OBS CARE 3/50MIN Diagnoses Primary osteoarthritis of right knee M17.11 Diabetes mellitus, type 2 E11.9 Hypothyroidism E03.9 BPH (benign prostatic hyperplasia) N40.0 Hyperlipidemia E78.5
[2023-01-30] MEDS: LANTUS PER UNIT CHARGE SC SCH ×2 (08:46→21:22)
[2023-01-30] MEDS ORDERED: MULTIVITAMIN TAB PO SCH (09:00)
--- NOTE | 2023-01-30 11:53 | Pharmacy Report ---
Pharmacy Glycemic Short Note 2 - Date of Service January 30, 2023 - Glycemic Short BSG Results (Last 24 hours): 01/29/23 01/29/23 01/29/23 12:51 16:25 20:41 Glucose POC Glucose 163 H 168 H 148 H 01/29/23 01/30/23 01/30/23 23:50 05:54 07:28 Glucose 158 H POC Glucose 145 H 246 H 01/30/23 11:34 Glucose POC Glucose 216 H OUTPATIENT ANTIDIABETIC REGIMEN: * glipizide 5mg PO BID * metformin 1gm PO BID HbA1C: 7% ASSESSMENT: 01/30: * BSGs 271-282-281-246-216mg/dL the last 24h. Received 12 units of bolus insulin last evening. * Tolerating diet, other stressors stable. * Begin basal insulin today given elevated fasting BSG. Lantus 5 units BID. Novolog tightened for improved prandial coverage. 01/29: * Pt is a 67 year old male admitted s/p R total knee arthroplasty. History of DM2 on PO medications at home. Pharmacy consulted to assist with glycemic management while inpatient. * BSGs 057-174-383sf/dL pre and post op. Diet ordered. No intra-op steroids documented. * Initiate Novolog moderate stress scale ACHS w/ overnight checks. Hold basal for now. PLAN FOR INPATIENT GLYCEMIC CONTROL: * Hold outpatient oral diabetes medications * Basal insulin * Lantus 5 units SQ BID * Bolus insulin * NovoLog per scale ACHS or Q6hrs while NPO * Goal Range: Low 110 mg/dL - High 140 mg/dL * Correction Factor: 20 mg/dL/unit * Nutritional / Prandial insulin per carb ratio of 1 unit per 8 grams CHO consumed
--- NOTE | 2023-01-30 14:53 | Communication Note ---
Date of Service: January 30, 2023 HemClarabridgec output additional 150cc (total of 1000cc thus far). Will repeat CBC this afternoon and in the morning. Also added iron/b12/folate w/ AM labs.
[2023-01-30 15:23] LABS: Hematocrit (blood only) 37.2 % (42.0-52.0); Hemoglobin 12.4 g/dl (14.0-18.0); Mean Corpuscular Hemoglobin 31.2 pg (25.0-34.0); Mean Corpuscular Hgb Conc 33.3 g/dL (32.0-36.0); Mean Corpuscular Volume 93.5 fL (80.0-100.0); Mean Platelet Volume 11.1 fL (9.4-12.4); Platelet Count 299 K/uL (130-400); RDW Coefficient of Variation 11.9 % (11.5-14.5); RDW Standard Deviation 40.5 fL (36.4-46.3); Red Blood Count 3.98 M/uL (4.70-6.10); White Blood Count 11.57 K/ul (4.8-10.8)
[2023-01-30] MEDS: SENNA 8.6 MG TAB PO SCH (20:27)
[2023-01-31] MEDS: LEVOTHYROXINE SODIUM 25 MCG TABLET PO SCH (05:33)
--- NOTE | 2023-01-31 05:51 | Orthopedic Progress Note ---
Date of Service January 31, 2023 Assessment & Plan (1) Primary osteoarthritis of right knee: Plan: Postop day #2 right total knee arthroplasty -PT/OT -Pain management as written -DVT prophylaxis: SCDs, teds, aspirin 81 mg twice daily --Discharge planning: Plan on discharge home with outpatient therapy. drain d/c'd this am. will do PT this am and discharge after if he tolerates well Admission and Anticipated Discharge Date Admission Date: January 29, 2023 Subjective POD #2 s/p Right TKA Review of Systems Review of Systems: All systems reviewed & are unremarkable except as noted in HPI & below Constitutional: no fever and no chills Respiratory: no cough and no dyspnea Cardiovascular: no chest pain, no dyspnea and no orthopnea Gastrointestinal: no abdominal pain, no nausea and no vomiting Physical Exam Physical Exam: Vital Signs Temp Pulse Resp BP Pulse Ox O2 Del Method 01/30/23 21:50 36.9 C 86 16 146/76 H 94 Room Air 01/30/23 14:54 37 C 75 18 133/69 94 Room Air 01/30/23 11:37 36.7 C 69 18 129/72 93 Room Air 01/30/23 07:25 36.8 C 70 18 115/62 94 Room Air Intake and Output 01/30/23 01/30/23 01/31/23 14:59 22:59 06:59 Intake Total 450 / 450 Output Total 650 / 1250 600 / 1250 Balance -200 / -800 -600 / -800 Intake: Oral 450 / 450 Output: Urine 550 / 550 Urine Amount (Ca theter) 500 / 500 Straight 500 / 500 Drain Output 150 / 200 50 / 200 Right Knee 150 / 200 50 / 200 Other: # Unmeasured Voi ds 1 Constitutional: WD/WN, vitals as above no acute distress Musculoskeletal: Right leg: NVDI, calf SNT, negative estephanie sign. DP palpable, able to wiggle toes/ankle movement without difficulty. dressing clean dry and intact. expected post-operative bruising noted. Results & Data Vital Signs (Past 12 Hours) Vital Signs Temp Pulse Resp BP Pulse Ox O2 Del Method 01/30/23 21:50 36.9 C 86 16 146/76 H 94 Room Air
[2023-01-31] MEDS: FINASTERIDE 5 MG TAB PO SCH (06:19)
[2023-01-31] MEDS: ATORVASTATIN 10 MG TAB PO SCH (06:19)
[2023-01-31] MEDS: CeleBREX 200 MG CAP PO SCH (06:19)
[2023-01-31] MEDS: ASPIRIN 81 MG ECTAB PO SCH (06:19)
[2023-01-31] MEDS: DOCUSATE SODIUM 100 MG CAP PO SCH (06:19)
[2023-01-31] MEDS: ACETAMINOPHEN 500 MG TAB PO SCH (06:20)
[2023-01-31] MEDS: MULTIVITAMIN TAB PO SCH (06:20)
[2023-01-31] MEDS: TAMSULOSIN HCL 0.4 MG CAP PO SCH (06:20)
[2023-01-31 07:09] LABS: Basophils # (auto) 0.03 K/uL (0.00-0.20); Basophils % (auto) 0.2 %; Eosinophils # (auto) 0.21 K/uL (0.00-0.50); Eosinophils % (auto) 1.7 %; Hematocrit (blood only) 38.3 % (42.0-52.0); Hemoglobin 12.8 g/dl (14.0-18.0); Immature Granulocytes # (auto) 0.04 K/uL (0.01-0.20); Immature Granulocytes % (auto) 0.3 %; Lymphocytes # (auto) 1.17 K/uL (1.20-3.40); Lymphocytes % (auto) 9.3 %; Mean Corpuscular Hemoglobin 31.5 pg (25.0-34.0); Mean Corpuscular Hgb Conc 33.4 g/dL (32.0-36.0); Mean Corpuscular Volume 94.3 fL (80.0-100.0); Mean Platelet Volume 11.1 fL (9.4-12.4); Monocytes # (auto) 1.39 K/uL (0.11-0.59); Monocytes % (auto) 11.1 %; Neutrophils # (auto) 9.73 K/uL (1.40-6.50); Neutrophils % (auto) 77.4 %; Platelet Count 312 K/uL (130-400); RDW Coefficient of Variation 11.9 % (11.5-14.5); RDW Standard Deviation 41.9 fL (36.4-46.3); Red Blood Count 4.06 M/uL (4.70-6.10); White Blood Count 12.57 K/ul (4.8-10.8)
[2023-01-31 07:27] LABS: BUN Creatinine Ratio 21.1 (10-20); Calcium 8.9 mg/dl (8.6-10.3); Creatinine Clr Calc Pharmacy 107.5 ml/min; Est GFR (African American) 112.5 ml/min; Est GFR (Non-African American) 97.1 ml/min; Potassium 4.3 mmol/L (3.5-5.1)
[2023-01-31 07:48] LABS: Ferritin 154.7 ng/ml (8-388)
[2023-01-31 07:54] LABS: Folate (Folic Acid),Ser orPlas 20.29 ng/ml (>5.38)
[2023-01-31] MEDS: INSULIN ASPART PER UNIT CHARGE SC SCH (08:17)
[2023-01-31] MEDS ORDERED: LANTUS PER UNIT CHARGE SC SCH (09:00)
--- NOTE | 2023-01-31 10:17 | Communication Note ---
Date of Service: January 31, 2023 Stopped by to see patient prior to discharge. Dressed and getting instructions from nursing. Feeling much better today. No fever/chills, no issues w/ urinary retention since yesterday morning and voiding without issues. No CP/SOB, lightheadedness/dizziness. also reports patient doing/feeling much better.. Hgb stable/improved on repeat. Renal function stable. Discussed elevated WBC likely reactive from blood loss/surgery but in absence of infectious symptoms stable for dc and to alert primary/ortho if any fevers after discharge. Stable for dc per ortho. Please call with any questions/concerns. Can f/u PCP at dc. Consider B12 supplementation for B12 203/borderline but not deficient.
== END 2023-01-31 10:38 | disposition home or self-care (01) ==
LOC: ASU 05:09 → PACUINP 05:09 → 3E 12:33

== ENCOUNTER 2023-04-06 05:10 | Observation (INO) ==
--- NOTE | 2023-03-26 16:19 | Anesthesiology Consultation ---
Date of Service March 26, 2023 Assessment & Plan (1) Encounter for pre-operative examination: Plan - check BSG am DOS. To anesthesiologist discretion if repeat testing is needed DOS. - s/p right TKA 01/29/23: SAB L3-L4 + PNB. - h/o post-op urinary retention. - Outpatient joint assessment: Patient is currently scheduled for inpatient pathway. If re-evaluated and patient/surgeon requests outpatient pathway, patient is acceptable candidate for outpatient joint program from anesthesia standpoint pending surgeon's office assessment of pt motivation/support/completion of same day joint program preop requirements. - Per manager assessment on 03/26/23: No known infectious disease contacts, current infectious disease symptoms in past 10 days or COVID positive test result in the past 30 days. Chart Review Chart Review: Acceptable Risk for Surgery and Patient NOT seen in Pre Admission Testing History Surgery Operation Date: 04/06/23 15:20 Proposed Procedures p Left Total Knee Arthroplasty - Ace Back MD Height/Weight Height: 5 ft 11 in Weight: 86.183 kg Allergies Allergy/AdvReac Type Severity Reaction Status Date / Time No Known Allergies Allergy Verified 03/26/23 15:26 Medications Home Medications Medication Instructions Recorded Confirmed Last Taken atorvastatin 10 mg tablet 10 mg PO QAM 01/07/23 03/26/23 01/29/23 03:30 finasteride 5 mg tablet 5 mg PO QAM 01/07/23 03/26/23 01/29/23 03:30 glipizide 5 mg tablet 5 mg PO BID 01/07/23 03/26/23 01/28/23 17:45 levothyroxine 25 mcg tablet 25 mcg PO QAM 01/07/23 03/26/23 01/29/23 03:30 metformin 500 mg tablet 1,000 mg PO BID 01/07/23 03/26/23 01/28/23 17:45 multivitamin 1 tab PO QAM 01/07/23 03/26/23 01/28/23 05:30 tamsulosin 0.4 mg capsule 0.4 mg PO QAM 01/07/23 03/26/23 01/29/23 03:30 aspirin 81 mg tablet,delayed 81 mg PO BID #60 tabs 01/30/23 03/26/23 Unknown release celecoxib 200 mg capsule (Celebrex) 200 mg PO BID #60 caps 01/30/23 03/26/23 Unknown acetaminophen 500 mg tablet 1,000 mg PO Q8 PRN Pain 03/26/23 03/26/23 Unknown (Tylenol Extra Strength) Past Medical History Medical History BPH (benign prostatic hyperplasia) Diabetes mellitus, type 2 NIDDM Hyperlipidemia Hypothyroidism Past Family History Family History Other No family history of adverse response to anesthesia Past Surgical History Surgical History H/O inguinal hernia repair rt/left H/O partial thyroidectomy left>benign lump removed History of anesthesia reaction urinary retention History of carpal tunnel release left History of colonoscopy History of right knee joint replacement History of tooth extraction Social History Smoking Status: Never smoker Do You Dip or Chew Tobacco: No Hx Alcohol Use: No Hx Substance Use: No substance use type: does not use Lab Results Anesthesia Preop Results Results Anesthesia Widget: WBC 12.57 K/ul (4.8-10.8) H 01/31/23 Hgb 12.8 g/dl (14.0-18.0) L 01/31/23 Hct 38.3 % (42.0-52.0) L 01/31/23 Plt 312 K/uL (130-400) 01/31/23 Na 136 mmol/L (136-145) 01/31/23 K 4.3 mmol/L (3.5-5.1) 01/31/23 Cl 102 mmol/L (98-107) 01/31/23 CO2 26 mmol/L (21-32) 01/31/23 BUN 15 mg/dl (6-23) 01/31/23 Creat 0.71 mg/dl (0.6-1.4) 01/31/23 Glucose Level 201 mg/dl (70-99(Fasting)) H 01/31/23 POC Glucose 226 mg/dl (70-99) H 01/31/23 HA1c 7.0 % (4.5-5.6) H 01/30/23 Testing Laboratory Results hospitalist notation regarding leukocytosis: "...Stopped by to see patient prior to discharge...Feeling much better today. No fever/chills, no issues w/ urinary retention since yesterday morning and voiding without issues. No CP/SOB, lightheadedness/dizziness. also reports patient doing/feeling much better.. Hgb stable/improved on repeat. Renal function stable. Discussed elevated WBC likely reactive from blood loss/surgery but in absence of infectious symptoms stable for dc and to alert primary/ortho if any fevers after discharge..." Electrocardiogram Date: 01/16/23 Sinus rhythm with premature ventricular complexes, rate 68 bpm Chest X-Ray Date: 01/16/23 No active disease in the chest.
--- NOTE | 2023-03-31 08:45 | History & Physical Report ---
Date of Service March 31, 2023 Assessment & Plan (1) Primary osteoarthritis of left knee: Plan: Treatment options discussed with the patient. He would like to proceed with surgical management. Risks, benefits and alternatives to surgery including but not limited to infection, DVT, pain, stiffness, need for revision surgery, damage to blood vessels, damage to nerves, PE, , were discussed with the patient and they wish to proceed. Plan for left total knee arthroplasty. Surgery scheduled for 04/06/23 at [facility] with Dr. Back. Plan on outpatient PT post op. Plan on aspirin 81mg twice daily for 1 mo post op. All questions answered. History of Present Illness Chief Complaint: Left knee pain Primary Care Provider: Dom Del Valle DO 67-year-old male with past medical history significant for diabetes, hypothyroidism, high cholesterol, recent right TKA who presents with ongoing left knee pain. Pain is interfering with his daily activities. He has failed conservative measures including steroid injections. He would like to proceed with left knee replacement. Patient denies headaches, sweats, fevers, chills, double vision, blurred vision, cough, sore throat, dysphagia, chest pain, sob, wheezing, n/v/d/c, numbness, tingling, fatigue, urinary symptoms, mood disorders. ROS positive for left knee pain and stiffness. Allergies Allergy/AdvReac Type Severity Reaction Status Date / Time No Known Allergies Allergy Verified 03/26/23 15:26 Home Medications Medication Instructions Recorded Confirmed Type atorvastatin 10 mg tablet 10 mg PO QAM 01/07/23 03/26/23 History finasteride 5 mg tablet 5 mg PO QAM 01/07/23 03/26/23 History glipizide 5 mg tablet 5 mg PO BID 01/07/23 03/26/23 History levothyroxine 25 mcg tablet 25 mcg PO QAM 01/07/23 03/26/23 History metformin 500 mg tablet 1,000 mg PO BID 01/07/23 03/26/23 History multivitamin 1 tab PO QAM 01/07/23 03/26/23 History tamsulosin 0.4 mg capsule 0.4 mg PO QAM 01/07/23 03/26/23 History aspirin 81 mg tablet,delayed 81 mg PO BID #60 tabs 01/30/23 03/26/23 Rx release celecoxib 200 mg capsule (Celebrex) 200 mg PO BID #60 caps 01/30/23 03/26/23 Rx acetaminophen 500 mg tablet 1,000 mg PO Q8 PRN Pain 03/26/23 03/26/23 History (Tylenol Extra Strength) Past Med/Surg History Medical History BPH (benign prostatic hyperplasia) Diabetes mellitus, type 2 NIDDM Hyperlipidemia Hypothyroidism Surgical History H/O inguinal hernia repair rt/left H/O partial thyroidectomy left>benign lump removed History of anesthesia reaction urinary retention History of carpal tunnel release left History of colonoscopy History of right knee joint replacement History of tooth extraction Family History Other No family history of adverse response to anesthesia Social History Smoking Status: Never smoker Second Hand Exposure: No; Do You Dip or Chew Tobacco: No; Hx Alcohol Use: No Hx Substance Use: No Preferred Language: Slovak Communication Ability: Effective Dray Driver Required: No Beliefs That Will Affect Care: None Current Living Situation: Spouse Feels Safe at Home: Yes Safety Concerns: Feels Safe At This Time Assistive Devices: Glasses Assistive Devices Comment: reading glasses Review of Systems All systems reviewed & are unremarkable except as noted in HPI & below Physical Exam Constitutional: well developed and well nourished; no acute distress Eyes: PERRL, conjunctivae normal, anicteric sclerae ENMT: external ear and nose normal, oropharynx normal Neck: trachea midline, no thyromegaly Respiratory: normal respiratory effort, lungs clear to auscultation Cardiovascular: RRR, no murmur, no edema Musculoskeletal: Left knee: Varus alignment. Moderate effusion. Tenderness medial joint line. Increased laxity with valgus and varus stress test. Range of motion is 0 to 115 degrees. Skin: no rashes, warm and dry Neurologic: patellar DTR's 2+ bilat, sensation intact Psychiatric: A+Ox3, euthymic affect Results & Data Diagnostic Findings Left knee radiographs demonstrate severe end-stage osteoarthritis, [id number] medial lateral compartments. There is significant subluxation of the femur on the tibia. There is periarticular osteophytes. He has bone loss medial tibial plateau.
[2023-04-06] MEDS: ACETAMINOPHEN 500 MG TAB PO SCH ×2 (05:40→13:10)
[2023-04-06] MEDS: METOCLOPRAMIDE HCL 10 MG TABLET PO SCH (05:41)
[2023-04-06] MEDS: GABAPENTIN 300 MG CAP PO SCH (05:41)
[2023-04-06] MEDS: FAMOTIDINE 20 MG TAB PO SCH (05:41)
[2023-04-06] MEDS: CeleBREX 200 MG CAP PO SCH (05:41)
[2023-04-06] MEDS: LR 60ML/HR IV SCH (05:42)
[2023-04-06] MEDS: LR 500ML BOLUS, THEN 15ML/HR IV SCH (06:05)
[2023-04-06] MEDS ORDERED: BUPIVACAINE 0.5 % 5 MG/1 ML PF 10ML VIAL ONE (06:17)
[2023-04-06] MEDS ORDERED: BUPIVACAINE 0.25% PF 30 ML VIAL ONE (06:17)
[2023-04-06] MEDS ORDERED: MIDAZOLAM HCL 1 MG/ML 2ML VIAL ONE ×2 (06:39→06:41)
[2023-04-06] MEDS: TRANEXAMIC ACID 1,000 MG **IV Pre-op IV SCH (06:41)
[2023-04-06] MEDS ORDERED: DexMEDEtomidine HCL IV 100 MCG/ML VIAL IV ONE (06:42)
--- NOTE | 2023-04-06 06:45 | History & Physical Bridge Note ---
Date of Service April 06, 2023 History & Physical Bridge Note I have examined the patient, reviewed the History & Physical and in the interval since the performance of the History & Physical I have noted the following changes of clinical significance: no changes noted
[2023-04-06] MEDS ORDERED: ePHEDrine sulfate 50 MG/ML AMP IV PRN (06:54)
[2023-04-06] MEDS ORDERED: ONDANSETRON INJ 2 MG/ML 2 ML VIAL IV PRN ×2 (06:54→11:05)
[2023-04-06] MEDS ORDERED: ATROPINE SULFATE 0.1 MG/ML 10ML SYR IV PRN (06:54)
[2023-04-06] MEDS: ceFAZolin 2000MG 2,000 MG/15 ML SYR IV SCH ×2 (06:59→14:47)
[2023-04-06] MEDS ORDERED: PROPOFOL IV EMULSION 10 MG/ML 20 ML VIAL IV ONE ×2 (07:27→08:46)
[2023-04-06] MEDS ORDERED: ONDANSETRON INJ 2 MG/ML 2 ML VIAL ONE (07:27)
[2023-04-06] MEDS ORDERED: ePHEDrine sulfate 50 MG/5 ML SYR ONE (07:27)
[2023-04-06] MEDS ORDERED: PHENYLEPHRINE 100MCG/ML 10ML SYR IV ONE (07:33)
[2023-04-06] MEDS: ORTHO JOINT ANESTHETIC ONE (08:11)
--- NOTE | 2023-04-06 09:13 | Post Operative Brief Note ---
Immediate Post Op Note v1 Date of Surgery April 06, 2023 Pre & Post Diagnosis Operation Date: 04/06/23 07:00 Pre-Op Diagnosis: Left Knee Osteoarthritis With bone loss medial compartment Post-Op Diagnosis: Left Knee Osteoarthritis with bone loss medial compartment I identified the patient and participated in the time-out.: Yes Procedure Operation Date: 04/06/23 07:00 Actual Procedures p Left Total Knee Arthroplasty(Left), difficult primary total knee replacement with stemmed tibial component with medial augment, application charly and Acticoat superficial wound VAC - Ace Back MD Surgeon Ace Back MD [employer] KEY Estimated Blood Loss 5 Findings Consistent with Post-Op Diagnosis Specimens bone cuts Drains Hemovac Drain Anesthesia Type MAC Spinal Regional Complications none Disposition Disposition: Recovery Room Overlapping Procedure I was present for: the critical portions of procedure. Back up surgeon: was not required during procedure.
[2023-04-06] MEDS: TRANEXAMIC ACID 1,000 MG **IV Intra-op IV SCH (09:22)
[2023-04-06] MEDS: ROPIV 0.5% 246mg, Ketorolac 30mg, EPINEPHrine 0.5mg in NSS INFIL SCH (09:25)
--- NOTE | 2023-04-06 10:56 | XRay Report ---
LEFT KNEE 2 VIEWS History: Left total knee arthroplasty. Degenerative arthritis. Postop. FINDINGS: The patient is status post a left total knee arthroplasty. The hardware is intact. No fract ure or dislocation. Skin abraham and surgical drains are in place. IMPRESSION: Left total knee arthroplasty. No evidence for hardware complication. ACT 112: Negative or not required by law. Electronically signed by: Graham Berrios M.D. 04/06/2023 10:54 AM
[2023-04-06] MEDS ORDERED: bisacodyL 10 MG SUPP PR PRN (11:05)
[2023-04-06] MEDS ORDERED: METOCLOPRAMIDE HCL INJ 5 MG/ML 2 ML VIAL IV PRN (11:05)
[2023-04-06] MEDS ORDERED: MAGNESIUM HYDROXIDE SUSP 30 ML UDC PO PRN (11:05)
[2023-04-06] MEDS ORDERED: NALOXONE HCL 0.4 MG/1 ML VIAL/CARP IV PRN (11:05)
[2023-04-06] MEDS ORDERED: HYDROmorphone INJ 0.5 MG/0.5 ML SYR IV PRN (11:05)
[2023-04-06] MEDS ORDERED: PHARMACY GLYCEMIC MGMT CONSULT PRN (11:05)
--- NOTE | 2023-04-06 11:05 | Electrocardiogram Report ---
Test Reason : Blood Pressure : / mmHG Vent. Rate : 071 BPM Atrial Rate : 071 BPM P-R Int : 172 ms QRS Dur : 084 ms QT Int : 374 ms P-R-T Axes : 045 -01 076 degrees QTc Int : 406 ms Poor data quality, interpretation may be adversely affected Normal sinus rhythm T wave abnormality, consider anterior ischemia Abnormal ECG When compared with ECG of 16-JAN-2023 11:22, Premature ventricular complexes are no longer Present Confirmed by Venkat Umaña ([id number]) on 04/06/2023 11:04:55 AM Referred By: Ace Back Confirmed By:William Umaña
--- NOTE | 2023-04-06 11:24 | Pharmacy Report ---
Pharmacy Glycemic Short Note 2 - Date of Service April 06, 2023 - Glycemic Short BSG Results (Last 24 hours): 04/06/23 04/06/23 05:44 09:49 POC Glucose 151 H 164 H OUTPATIENT ANTIDIABETIC REGIMEN: * Metformin 1000 mg BID, glipizide 5 mg BId * A1c 7.0% 01/30/23 ASSESSMENT: * Patient admitted following L TKA, no intraop steroids documented * Reviewed previous admission, will give one time dose of lantus 10 units * Novolog weight based stress of 2 PLAN FOR INPATIENT GLYCEMIC CONTROL: * Hold outpatient oral diabetes medications * Basal insulin * Lantus 10 units x 1 * Bolus insulin * NovoLog per scale ACHS or Q6hrs while NPO * Goal Range: Low 110 mg/dL - High 140 mg/dL * Correction Factor: 30 mg/dL/unit * Nutritional / Prandial insulin per carb ratio of 1 unit per 10 grams CHO consumed
[2023-04-06] MEDS: SODIUM CHLORIDE 0.9% 1,000 ML IV SCH (11:28)
[2023-04-06] MEDS ORDERED: DEXTROSE 50% 50 ML SYRINGE IV PRN (11:30)
[2023-04-06] MEDS ORDERED: GLUCOSE 10 TAB/TUBE PO PRN (11:30)
[2023-04-06] MEDS ORDERED: CARBOHYDRATES FOR HYPOGLYCEMIA PO PRN (11:30)
[2023-04-06] MEDS ORDERED: GLUCOSE 40% GEL 15 GM TUBE PO PRN (11:30)
[2023-04-06] MEDS ORDERED: GLUCAGON FOR INJ 1 MG VIAL IM PRN (11:30)
--- NOTE | 2023-04-06 11:44 | Hospitalist Consultation ---
Date of Consultation April 06, 2023 Assessment & Plan (1) Status post left knee replacement: -Patient is currently Post-op Day #0 S/P Left Total Knee Arthroplasty with Dr. Back -Pain control, perioperative abx, DVT PPX, and IV fluids per the primary team -Agree with am CBC and BMP tomorrow, we will follow -Will add daily famotidine for stress ulcer prophylaxis -Please reach out with any other questions or concerns -Medicine will continue to follow (2) BPH (benign prostatic hyperplasia): -Can continue tamsulosin and finasteride as long as patient remains hemodynamically stable (3) Diabetes mellitus, type 2: -Patient is normally on Metformin and Glipizide -Pharmacy glycemic control consult placed by the primary team -Rest of care per Pharmacy (4) Hypothyroidism: -Continue levothyroxine (5) Hyperlipidemia: -Continue statin Plan The patient was discussed with Dr. Delarosa at the time of the consult Supervising Physician Co-Signing Physician Notes Patient seen and examined, chart reviewed, case discussed with Milo Martin PA-C and I agree with the assessment and plan as above except as otherwise noted Labs and images reviewed 67-year-old male who is seen as a medical consult postoperatively after left total knee arthroplasty. History of DM2, hypothyroidism, hyperlipidemia, BPH. Feeling well and in no pain at the bedside. At time of bedside visit still has some numbness in the left foot but ankle dorsiflexion/plantarflexion is intact without asymmetry or weakness, PT pulses intact bilaterally. No acute distress. Has controlled diabetes mellitus on metformin/glipizide. Pharmacy glycemic consult has been placed. No acute concerns at bedside, hemodynamically stable. Agree with assessment and management above History of Present Illness Reason for Consultation: Post-op medical management Requesting Physician: Ace Back MD Attending Physician: Dr. Trevor Delarosa History of Present Illness Demetri is a 67 year old male with a PMH significant for DMII, Hypothyroidism, hyperlipidemia, and BPH who presented to the [facility] [place] [facility] on 04/06/23 for scheduled Left Total Knee Arthroplasty with Dr. Back. Review of his vitals since arrival shows him to be stable. Per the operative report, EBL was listed as 5 cc, anesthesia was listed as "[facility]", and there were no reported intraoperative complications. At the time of the exam the patient was lying in bed in no acute distress with his sitting bedside. He states that he is feeling well after his procedure, his pain is currently controlled. They confirm that he took his levothyroxine and tamsulosin this am. He denies fever, chills, chest pain, SOB, abd pain, nausea, vomiting, diarrhea, dysuria, hematuria, and melena. Please refer to Dr. Delarosa's attestation for any changes to the treatment plan Allergies Allergy/AdvReac Type Severity Reaction Status Date / Time No Known Allergies Allergy Verified 04/06/23 05:37 Home Medications Medication Instructions Recorded Confirmed Type atorvastatin 10 mg tablet 10 mg PO QAM 01/07/23 04/06/23 History finasteride 5 mg tablet 5 mg PO QAM 01/07/23 04/06/23 History glipizide 5 mg tablet 5 mg PO BID 01/07/23 04/06/23 History levothyroxine 25 mcg tablet 25 mcg PO QAM 01/07/23 04/06/23 History metformin 500 mg tablet 1,000 mg PO BID 01/07/23 04/06/23 History multivitamin 1 tab PO QAM 01/07/23 04/06/23 History tamsulosin 0.4 mg capsule 0.4 mg PO QAM 01/07/23 04/06/23 History acetaminophen 500 mg tablet 1,000 mg (2 x 500 mg) PO Q8 #60 04/07/23 Rx (Tylenol Extra Strength) tabs aspirin 81 mg tablet,delayed 81 mg PO BID #60 tabs 04/07/23 Rx release cefadroxil 500 mg capsule 500 mg PO BID #28 caps 04/07/23 Rx meloxicam 15 mg tablet 15 mg PO DAILY #30 tabs 04/07/23 Rx oxycodone 5 mg tablet 5 - 10 mg (1 - 2 x 5 mg) PO 04/07/23 Rx .Q4h-6h PRN pain #30 tabs Patient History Medical History (Updated 04/06/23 @ 11:59 by Milo Martin PA-C) BPH (benign prostatic hyperplasia) Hypothyroidism Diabetes mellitus, type 2 NIDDM Hyperlipidemia Surgical History (Updated 04/06/23 @ 11:59 by Milo Martin PA-C) History of right knee joint replacement History of anesthesia reaction urinary retention History of carpal tunnel release left History of colonoscopy H/O inguinal hernia repair rt/left History of tooth extraction H/O partial thyroidectomy left>benign lump removed Family History Other No family history of adverse response to anesthesia Social History Smoking Status: Never smoker Second Hand Exposure: No; Do You Dip or Chew Tobacco: No; Hx Alcohol Use: No Hx Substance Use: No Preferred Language: Grenadian Communication Ability: Effective Gaming Department Head Required: No Beliefs That Will Affect Care: None Current Living Situation: Spouse Feels Safe at Home: Yes Assistive Devices: Walker Physical Exam Physical Exam: Physical Exam: General: In no acute distress, stated age, well-nourished, good hygiene HEENT: Normocephalic, atraumatic, no scleral icterus, pupils around round, symmetrical, and reactive to light, moist mucus membranes, trachea midline, no thyromegaly Chest/Pulm: No respiratory distress, symmetrical chest expansion, clear breath sounds throughout Cardiac: RRR, no murmurs noted Abdomen: Negative for ascites and bruising, normoactive bowel sounds, soft, non-tender to palpation throughout Musculoskeletal: LLE is currently wrapped and without signs of bleeding, symmetrical sensation and motor function in the BL feet Extremities: Radial, dorsalis pedis, and posterior tibial pulses are intact and symmetrical, no edema noted in the BL LE's Skin: Warm, dry, no rashes , lesions, or scars noted Neuro: Alert and oriented to person, place, month, year, and president, no focal defects, no tremors noted Psych: No acute distress, calm and cooperative during the exam Results & Data Results & Data Vital Signs (Past 12 Hours) Vital Signs Temp Pulse Pulse Pulse Resp BP Pulse Ox 04/06/23 11:30 64 18 110/60 98 04/06/23 11:05 36.7 C 64 18 104/58 L 96 04/06/23 10:40 70 16 102/65 95 04/06/23 10:30 70 15 89/54 L 95 04/06/23 10:20 36.6 C 77 14 107/56 L 93 04/06/23 10:15 36.7 C 70 17 107/59 L 98 04/06/23 10:08 71 04/06/23 10:05 73 18 104/58 L 93 04/06/23 09:55 74 17 106/58 L 94 04/06/23 09:47 36.5 C 78 16 99/58 L 95 04/06/23 05:33 36.7 C 78 20 157/89 H 97 O2 Del Method O2 Flow Rate 04/06/23 11:30 Room Air 04/06/23 11:05 Room Air 04/06/23 10:40 Room Air 0 04/06/23 10:30 Room Air 0 04/06/23 10:20 Room Air 0 04/06/23 10:15 Oxymask 2 04/06/23 10:08 04/06/23 10:05 Oxymask 4 04/06/23 09:55 Oxymask 6 04/06/23 09:47 Oxymask 6 04/06/23 05:33 Room Air Laboratory Results Abnormal lab results 04/06/23 04/06/23 04/06/23 Range/Units 05:44 09:49 11:36 POC Glucose 151 H 164 H 159 H (70-99) mg/dl Diagnostic Findings Knee X-Ray 04/06/23 09:49 LEFT KNEE 2 VIEWS History: Left total knee arthroplasty. Degenerative arthritis. Postop. FINDINGS: The patient is status post a left total knee arthroplasty. The hardware is intact. No fracture or dislocation. Skin abraham and surgical drains are in place. IMPRESSION: Left total knee arthroplasty. No evidence for hardware complication. ACT 112: Negative or not required by law. Electronically signed by: Graham Berrios M.D. 04/06/2023 10:54 AM PG Care Time/CCT Total # of Minutes Spent Total Time Spent with Patient: Total time spent is greater than 50% in coordination of care (as documented) at patient's floor/unit and/or counseling patient: Coding [place] [address] IN/OBS CONSULT LVL 5,80M Patient Type Established Medical Decision Making High Complexity Diagnoses Status post left knee replacement Z96.652 BPH (benign prostatic hyperplasia) N40.0 Diabetes mellitus, type 2 E11.9 Hypothyroidism E03.9 Hyperlipidemia E78.5
[2023-04-06] MEDS: LANTUS PER UNIT CHARGE SC ONE (12:11)
[2023-04-06] MEDS: INSULIN ASPART PER UNIT CHARGE SC SCH (12:11)
--- NOTE | 2023-04-06 13:19 | Anesthesiology Progress Note ---
Date of Service April 06, 2023 Anesthesia Post Procedure Vital Signs Vital Signs: Temp Pulse Pulse Pulse Resp BP Pulse Ox 04/06/23 13:07 68 18 118/66 96 04/06/23 12:04 36.8 C 72 18 130/74 98 04/06/23 11:30 64 18 110/60 98 04/06/23 11:05 36.7 C 64 18 104/58 L 96 04/06/23 10:40 70 16 102/65 95 04/06/23 10:30 70 15 89/54 L 95 04/06/23 10:20 36.6 C 77 14 107/56 L 93 04/06/23 10:15 36.7 C 70 17 107/59 L 98 04/06/23 10:08 71 04/06/23 10:05 73 18 104/58 L 93 04/06/23 09:55 74 17 106/58 L 94 04/06/23 09:47 36.5 C 78 16 99/58 L 95 04/06/23 05:33 36.7 C 78 20 157/89 H 97 O2 Del Method O2 Flow Rate 04/06/23 13:07 Room Air 04/06/23 12:04 Room Air 04/06/23 11:30 Room Air 04/06/23 11:05 Room Air 04/06/23 10:40 Room Air 0 04/06/23 10:30 Room Air 0 04/06/23 10:20 Room Air 0 04/06/23 10:15 Oxymask 2 04/06/23 10:08 04/06/23 10:05 Oxymask 4 04/06/23 09:55 Oxymask 6 04/06/23 09:47 Oxymask 6 04/06/23 05:33 Room Air Transfer of Care Handoff Completed per policy Notes Mental Status: alert / awake / arousable and participated in evaluation Patient Amnestic to Procedure: Yes Nausea / Vomiting: adequately controlled Pain: adequately controlled Airway Patency, RR, SpO2: stable & adequate BP & HR: stable & adequate Hydration State: stable & adequate Neuraxial Anesthesia: was administered and sensory block is resolving Anesthetic Complications: no major complications apparent and Pt Satisfied with anesthetic care
[2023-04-06] MEDS: oxyCODONE HCL IR 5 MG TAB (IMMEDIATE RELEASE) PO PRN (14:51)
--- NOTE | 2023-04-06 16:42 | Operative Report ---
Post Operative Report Pre & Post Diagnosis Operation Date: 04/06/23 07:00 Pre-Op Diagnosis: Left Knee Osteoarthritis with bone loss medial compartment Post-Op Diagnosis: Left Knee Osteoarthritis with bone loss medial compartment I identified the patient and participated in the time-out.: Yes Procedure Operation Date: 04/06/23 07:00 Actual Procedures p Left Total Knee Arthroplasty(Left), difficult primary with revision tibial components for primary knee replacement, application hoda and Acticoat superficial wound VAC- Ace Back MD Surgeon Ace Back MD Sheet Ironworker Neto KEY Estimated Blood Loss 5 Findings Consistent with Post-Op Diagnosis Specimens Bone cuts Drains 2 Hemovac Anesthesia Type [facility] Complications none Disposition Disposition: Recovery Room Indications 67-year-old male with severe osteoarthritis of his left knee with bone loss medial compartment. Patient has severe bilateral knee arthritis has successful right knee replacement now presents for left knee replacement. Description of Procedure Patient taken to the operating room the size under spinal MAC regional block a nesthesia. Patient was placed supine on the operating table. A pneumatic tourniquet was placed about the left upper thigh. The left lower extremity was prepped and draped in sterile fashion. Knee exam demonstrated collapse of the medial compartment with laxity of the lateral compartment with instability medial and posterior medial due to joint space loss due to bone loss.. The leg was elevated exsanguinated with an Esmarch bandage and pneumatic tourniquet was raised to 275 millimeters of mercury. Skin incised sharply in longitudinal fashion. Subcutaneous flaps elevated. Incision was made through the medial retinaculum extending up in the mid third of the quadriceps tendon and down to the medial tibial tubercle. Intra-articular findings demonstrated severe tricompartmental osteoarthritis with notch stenosis chronic ACL tear chronic medial meniscus tear. Mild synovitis. Tricompartmental osteophytes. Medial compartment was [id number] with the posterior medial bone loss severe. The [employer] persona total knee arthroplasty system was used. To expose the knee the infrapatellar fat pad was resected. The meniscal remnants were resected. The anterior fat pad over the femur in the area of the location of the anterior flange of the femoral component was resected. The lateral synovial bands were released. The femur was exposed. Curved osteotome was used to resect the notch osteophytes and the PCL was resected. An intramedullary drill hole was made into the canal. A guide sue was placed. Distal femoral cutting guide was adjusted to resect a5 degree valgus cut with the standard distal femur resected. The knee was extended and a subperiosteal peel lateral release was performed around the patella. Patella width was measured and width was reproduced using a freehand cut technique and a 35 patella component. The 3 drill holes were made and the excess lateral facet was beveled off to prevent any impingement. Attention was taken back to the femur which was exposed with retractors and the femoral sizing guide was pinned in position. The drill holes were placed in 3 of external rotation to match the epicondylar axis. The femur sized for a 11 component. The 4-in-1 cutting block was placed and then the anterior posterior and chamfer cuts are made. The tibia was then subluxed. Intramedullary drill hole was made into the tibia followed by sequential reamers up to a size 15 stem. The cutting guide was placed onto the stem and with a bone loss medially I felt we required a +5 mm medial offset and appropriate cuts were made. The patient required a +6 offset so I had to use the tilt reamer and the proximal metaphyseal reamer and placed the 6 offset stem in position and used the appropriate punch for the fins. We had previously made a +5 mm medial offset cut with the oscillating saw. The tibia was sized for age tibial component. A lamina certified pharmacy tech was used and the flexion extension gaps were balanced. Medial and posterior medial releases were required. All posterior osteophytes removed. All meniscal remnants were resected. The femoral trial was inserted And centered and the notch cutting devices were utilized and the collet was placed. Trial tibial inserts were placed and size 10 mm CPS trial gave balanced ligaments through flexion and extension. Patella tracking was assessed. The patella tracked centrally. The trial components were then removed and the orthomix anesthetic cocktail was injected per protocol. The knee was then copiously irrigated with pulsatile lavage saline solution. Final components were then cemented with Refobacin cement. Xperience irrigation placed over metal compoments prior to polyethylene insertion. Final components were [employer] persona 15 mm stem +6 offset with a 5 mm tibial medial augment size H left tibia with a 10 mm CPS tibial polyethylene and a 11 posterior stabilized standard femoral component and a 35 mm patella. After the cement cured further pulsatile lavage irrigation was then performed with Xperience and 2 Hemovac drains were brought out laterally. The quadriceps tendon and medial retinaculum were closed with figure of 8 #1 Vicryl sutures. The knee was taken through full range of motion and the repair was secure. Knee range of motion was 0 through 130 degrees. The subcutaneous tissues were closed with 2-0 Vicryl sutures. Skin was closed with abraham. Hoda and Acticoat superficial wound VAC was applied. The patient tolerated the procedure well. Neto KEY was my physician assistant teaching professor who participated as acute care assistant and was involved in all aspects of the procedure including patient positioning prepping and draping,leg positioning ,soft tissue retraction and instrument management and participated in the closing and application of the superficial wound VAC and will participate in postoperative care of the patient. The patient tolerated the procedure well. I attest to the content of the Intraoperative Record and any orders documented therein. Any exceptions are noted below.
[2023-04-06] MEDS: ASPIRIN 81 MG ECTAB PO SCH (20:32)
[2023-04-06] MEDS: DOCUSATE SODIUM 100 MG CAP PO SCH (20:32)
[2023-04-06] MEDS: SENNA 8.6 MG TAB PO SCH (20:32)
[2023-04-06] MEDS ORDERED: CeleBREX 200 MG CAP PO SCH (21:00)
[2023-04-07] MEDS: LEVOTHYROXINE SODIUM 25 MCG TABLET PO SCH (05:30)
[2023-04-07 06:44] LABS: Hematocrit (blood only) 32.3 % (42.0-52.0); Hemoglobin 10.8 g/dl (14.0-18.0); Mean Corpuscular Hemoglobin 30.2 pg (25.0-34.0); Mean Corpuscular Hgb Conc 33.4 g/dL (32.0-36.0); Mean Corpuscular Volume 90.2 fL (80.0-100.0); Mean Platelet Volume 11.2 fL (9.4-12.4); Platelet Count 268 K/uL (130-400); RDW Coefficient of Variation 13.1 % (11.5-14.5); RDW Standard Deviation 43.2 fL (36.4-46.3); Red Blood Count 3.58 M/uL (4.70-6.10); White Blood Count 9.88 K/ul (4.8-10.8)
[2023-04-07 06:57] LABS: BUN Creatinine Ratio 26.9 (10-20); Calcium 8.2 mg/dl (8.6-10.3); Creatinine Clr Calc Pharmacy 113.9 ml/min; Est GFR (African American) 115.2 ml/min; Est GFR (Non-African American) 99.4 ml/min; Potassium 4.2 mmol/L (3.5-5.1)
--- NOTE | 2023-04-07 07:35 | Orthopedic Progress Note ---
Date of Service April 07, 2023 Assessment & Plan (1) Primary osteoarthritis of left knee: Plan: Postop day #1 left total knee arthroplasty -PT/OT -Pain management as written -DVT prophylaxis: SCDs, teds, aspirin 81 mg twice daily -A.m. labs: Hemoglobin at 10.8 from 12.8 preop, acute blood loss anemia due to surgical loss versus dilutional. Patient is asymptomatic -Discharge planning: Plan on discharge home with outpatient therapy. Plan on discharge home today as long as progresses well with therapy. Admission and Anticipated Discharge Date Admission Date: April 06, 2023 Subjective Patient is postop day #1 left total knee arthroplasty. Overall he is doing well this morning. He has mild pain but is controlled. No other complaints. Denies chest pain, shortness of breath, nausea/vomiting/diarrhea, headaches or dizziness. Review of Systems Review of Systems: All systems reviewed & are unremarkable except as noted in Subjective Physical Exam Physical Exam: Left knee: Dressing is clean, dry, intact. Toes are mobile with good dorsiflexion. No calf tenderness. Able to straight leg raise. Distal neurovascular status and sensation is grossly intact. Hemovac output 125 from 8:00 last night to this morning. Results & Data Vital Signs (Past 12 Hours) Vital Signs Temp Pulse Pulse Resp BP BP Pulse Ox 04/07/23 07:11 36.9 C 73 16 164/71 H 94 04/07/23 03:30 36.7 C 78 16 165/67 H 93 04/06/23 23:20 36.8 C 73 16 121/63 94 O2 Del Method 04/07/23 07:11 Room Air 04/07/23 03:30 Room Air 04/06/23 23:20 Room Air Laboratory Results Lab Results 04/06/23 04/06/23 04/06/23 Range/Units 05:44 09:49 11:36 WBC (4.8-10.8) K/ul RBC (4.70-6.10) M/uL Hgb (14.0-18.0) g/dl Hct (42.0-52.0) % MCV (80.0-100.0) fL MCH (25.0-34.0) pg MCHC (32.0-36.0) g/dL RDW Std Deviation (36.4-46.3) fL RDW Coeff of Manish (11.5-14.5) % Plt Count (130-400) K/uL MPV (9.4-12.4) fL Sodium (136-145) mmol/L Potassium (3.5-5.1) mmol/L Chloride (98-107) mmol/L Carbon Dioxide (21-32) mmol/L Anion Gap (3-11) BUN (6-23) mg/dl Creatinine (0.6-1.4) mg/dl Est Cr Clr Drug Dosing ml/min Est GFR ( Amer) ml/min Est GFR (Non-Af Amer) ml/min BUN/Creatinine Ratio (10-20) Glucose (70-99(Fasting)) mg/dl POC Glucose 151 H 164 H 159 H (70-99) mg/dl Calcium (8.6-10.3) mg/dl 04/06/23 04/06/23 04/07/23 Range/Units 16:41 21:00 05:56 WBC 9.88 (4.8-10.8) K/ul RBC 3.58 L (4.70-6.10) M/uL Hgb 10.8 L (14.0-18.0) g/dl Hct 32.3 L (42.0-52.0) % MCV 90.2 (80.0-100.0) fL MCH 30.2 (25.0-34.0) pg MCHC 33.4 (32.0-36.0) g/dL RDW Std Deviation 43.2 (36.4-46.3) fL RDW Coeff of Manish 13.1 (11.5-14.5) % Plt Count 268 (130-400) K/uL MPV 11.2 (9.4-12.4) fL Sodium 135 L (136-145) mmol/L Potassium 4.2 (3.5-5.1) mmol/L Chloride 105 (98-107) mmol/L Carbon Dioxide 25 (21-32) mmol/L Anion Gap 5 (3-11) BUN 18 (6-23) mg/dl Creatinine 0.67 (0.6-1.4) mg/dl Est Cr Clr Drug Dosing 113.9 ml/min Est GFR ( Amer) 115.2 ml/min Est GFR (Non-Af Amer) 99.4 ml/min BUN/Creatinine Ratio 26.9 H (10-20) Glucose 138 H (70-99(Fasting)) mg/dl POC Glucose 133 H 137 H (70-99) mg/dl Calcium 8.2 L (8.6-10.3) mg/dl 04/07/23 Range/Units 07:29 WBC (4.8-10.8) K/ul RBC (4.70-6.10) M/uL Hgb (14.0-18.0) g/dl Hct (42.0-52.0) % MCV (80.0-100.0) fL MCH (25.0-34.0) pg MCHC (32.0-36.0) g/dL RDW Std Deviation (36.4-46.3) fL RDW Coeff of Manish (11.5-14.5) % Plt Count (130-400) K/uL MPV (9.4-12.4) fL Sodium (136-145) mmol/L Potassium (3.5-5.1) mmol/L Chloride (98-107) mmol/L Carbon Dioxide (21-32) mmol/L Anion Gap (3-11) BUN (6-23) mg/dl Creatinine (0.6-1.4) mg/dl Est Cr Clr Drug Dosing ml/min Est GFR ( Amer) ml/min Est GFR (Non-Af Amer) ml/min BUN/Creatinine Ratio (10-20) Glucose (70-99(Fasting)) mg/dl POC Glucose 133 H (70-99) mg/dl Calcium (8.6-10.3) mg/dl
--- NOTE | 2023-04-07 08:16 | Hospitalist Progress Note ---
Date of Service April 07, 2023 Assessment & Plan (1) Status post left knee replacement: Plan: s/p Left Total Knee Arthroplasty(Left), difficult primary with revision tibial components for primary knee replacement, application charly and Acticoat superficial wound VAC- Ace Back MD EBL 5cc WBC wnl, afebrile Hgb 12.8--> 10.8, acute blood loss anemia from surgery as well as dilutional aspect from IVF. Asymptomatic Famotidine daily for stress ulcer prevention DVT proph: ASA 81mg BID Pain control, bowel regimen, PT/OT per primary service Please call hospitalist service with any questions/concerns. Dispo per primary service -- planning on dc per patient (2) BPH (benign prostatic hyperplasia): Plan: Flomax/finasteride continued, no issues reported (3) Diabetes mellitus, type 2: Plan: Nrmally on Metformin and Glipizide -Pharmacy glycemic control consult placed by the primary team BSGs acceptable (4) Hypothyroidism: Plan: -Continue levothyroxine (5) Hyperlipidemia: Plan: -Continue statin Plan Thank you for allowing hospitalist service to participate in the care of Mr Brizuela. Please call with any questions/ concerns. Hospitalist service will sign off. Admission and Anticipated Discharge Date Admission Date: April 06, 2023 Supervising Physician Co-Signing Physician Notes The patient was not seen by me. The chart was reviewed. Case discussed with SHAHID Mendez. Agree with assessment and plan Subjective Patient evaluated this morning, at bedside. Seen by ortho PA. Doing well. No fevr/chills, chest pain, shortness of breath, abdominal pain, nausea, vomiting, lightheadedness. Planning on dc today. Had his other knee done back in January. and patient would like to make sure pain rx sent, cannot take celebrex as hard on his stomach and will verify meds sent. Physical Exam Physical Exam: General: WD/WN male sitting up in bed, getting drain removed, at bedside, NAD HEENT: head atraumatic, normocephalic, mmm, trachea midline Resp: even/unlabored, no w/c/r, on room air CV: RRR, no significant mrg, no pitting edema, calves nontender, pulses palpable GI: +BS, soft/NT : dressing removed by nursing, removing drain, some bruising/edema at site of surgery but no active drainage, strength equal b/l LE dorsiflexion/plantar flexion, sensation intact Psych: AOx3, cooperative with exam Results & Data Results & Data Vital Signs (Past 12 Hours) Vital Signs Temp Pulse Pulse Resp BP BP Pulse Ox 04/07/23 07:11 36.9 C 73 16 164/71 H 94 04/07/23 03:30 36.7 C 78 16 165/67 H 93 04/06/23 23:20 36.8 C 73 16 121/63 94 O2 Del Method 04/07/23 07:11 Room Air 04/07/23 03:30 Room Air 04/06/23 23:20 Room Air Laboratory Results 04/07/23 04/07/23 04/06/23 Range/Units 07:29 05:56 21:00 WBC 9.88 (4.8-10.8) K/ul RBC 3.58 L (4.70-6.10) M/uL Hgb 10.8 L (14.0-18.0) g/dl Hct 32.3 L (42.0-52.0) % MCV 90.2 (80.0-100.0) fL MCH 30.2 (25.0-34.0) pg MCHC 33.4 (32.0-36.0) g/dL RDW Std Deviation 43.2 (36.4-46.3) fL RDW Coeff of Manish 13.1 (11.5-14.5) % Plt Count 268 (130-400) K/uL MPV 11.2 (9.4-12.4) fL Sodium 135 L (136-145) mmol/L Potassium 4.2 (3.5-5.1) mmol/L Chloride 105 (98-107) mmol/L Carbon Dioxide 25 (21-32) mmol/L Anion Gap 5 (3-11) BUN 18 (6-23) mg/dl Creatinine 0.67 (0.6-1.4) mg/dl Est Cr Clr Drug Dosing 113.9 ml/min Est GFR ( Amer) 115.2 ml/min Est GFR (Non-Af Amer) 99.4 ml/min BUN/Creatinine Ratio 26.9 H (10-20) Glucose 138 H (70-99(Fasting)) mg/dl POC Glucose 133 H 137 H (70-99) mg/dl Calcium 8.2 L (8.6-10.3) mg/dl 04/06/23 04/06/23 04/06/23 Range/Units 16:41 11:36 09:49 WBC (4.8-10.8) K/ul RBC (4.70-6.10) M/uL Hgb (14.0-18.0) g/dl Hct (42.0-52.0) % MCV (80.0-100.0) fL MCH (25.0-34.0) pg MCHC (32.0-36.0) g/dL RDW Std Deviation (36.4-46.3) fL RDW Coeff of Manish (11.5-14.5) % Plt Count (130-400) K/uL MPV (9.4-12.4) fL Sodium (136-145) mmol/L Potassium (3.5-5.1) mmol/L Chloride (98-107) mmol/L Carbon Dioxide (21-32) mmol/L Anion Gap (3-11) BUN (6-23) mg/dl Creatinine (0.6-1.4) mg/dl Est Cr Clr Drug Dosing ml/min Est GFR ( Amer) ml/min Est GFR (Non-Af Amer) ml/min BUN/Creatinine Ratio (10-20) Glucose (70-99(Fasting)) mg/dl POC Glucose 133 H 159 H 164 H (70-99) mg/dl Calcium (8.6-10.3) mg/dl Diagnostic Findings Knee X-Ray 04/06/23 09:49 LEFT KNEE 2 VIEWS History: Left total knee arthroplasty. Degenerative arthritis. Postop. FINDINGS: The patient is status post a left total knee arthroplasty. The hardware is intact. No fracture or dislocation. Skin abraham and surgical drains are in place. IMPRESSION: Left total knee arthroplasty. No evidence for hardware complication. ACT 112: Negative or not required by law. Electronically signed by: Graham Berrios M.D. 04/06/2023 10:54 AM PG Care Time/CCT Total # of Minutes Spent Total Time Spent with Patient: Total time spent is greater than 50% in coordination of care (as documented) at patient's floor/unit and/or counseling patient: Coding Level of Care Code 58751 SUB INP/OBS CARE MIN Diagnoses Status post left knee replacement Z96.652 BPH (benign prostatic hyperplasia) N40.0 Diabetes mellitus, type 2 E11.9 Hypothyroidism E03.9 Hyperlipidemia E78.5
[2023-04-07] MEDS: MULTIVITAMIN TAB PO SCH (08:43)
[2023-04-07] MEDS: TAMSULOSIN HCL 0.4 MG CAP PO SCH (08:44)
[2023-04-07] MEDS: ATORVASTATIN 10 MG TAB PO SCH (08:44)
[2023-04-07] MEDS: FINASTERIDE 5 MG TAB PO SCH (08:44)
[2023-04-07] MEDS: FAMOTIDINE 20 MG TAB PO SCH (08:44)
[2023-04-07] MEDS: MELOXICAM 7.5 MG TAB PO SCH (08:44)
[2023-04-07] MEDS ORDERED: MULTIVITAMIN TAB PO SCH (09:00)
[2023-04-07] MEDS: metFORMIN HCL ER 500 MG TABCR PO SCH (09:23)
--- NOTE | 2023-04-07 11:48 | Discharge Summary ---
Date of Service April 07, 2023 Admission HPI Per Admitting Provider 67-year-old male with past medical history significant for diabetes, hypothyroidism, high cholesterol, recent right TKA who presents with ongoing left knee pain. Pain is interfering with his daily activities. He has failed conservative measures including steroid injections. He would like to proceed with left knee replacement. Patient denies headaches, sweats, fevers, chills, double vision, blurred vision, cough, sore throat, dysphagia, chest pain, sob, wheezing, n/v/d/c, numbness, tingling, fatigue, urinary symptoms, mood disorders. ROS positive for left knee pain and stiffness. Admission Exam Per Admitting Provider Constitutional: well developed and well nourished; no acute distress Eyes: PERRL, conjunctivae normal, anicteric sclerae ENMT: external ear and nose normal, oropharynx normal Neck: trachea midline, no thyromegaly Respiratory: normal respiratory effort, lungs clear to auscultation Cardiovascular: RRR, no murmur, no edema Musculoskeletal: Left knee: Varus alignment. Moderate effusion. Tenderness medial joint line. Increased laxity with valgus and varus stress test. Range of motion is 0 to 115 degrees. Skin: no rashes, warm and dry Neurologic: patellar DTR's 2+ bilat, sensation intact Psychiatric: A+Ox3, euthymic affect Principal Diagnosis Left knee OA Discharge Exam Left knee: Dressing is clean, dry, intact. Toes are mobile with good dorsiflexion. No calf tenderness. Able to straight leg raise. Distal neurovascular status and sensation is grossly intact. Hemovac output 125 from 8:00 last night to this morning. Discharge Data Allergies Allergy/AdvReac Type Severity Reaction Status Date / Time No Known Allergies Allergy Verified 04/06/23 05:37 Consultations 04/01/23 14:38 Consult Hospitalist Routine Procedures Performed Operation Date: 04/06/23 07:00 Actual Procedures p Left Total Knee Arthroplasty(Left) - Ace Back MD Ordered Studies 04/06/23 05:00 US - OR guided needle placemen Routine Hospital Course (1) Primary osteoarthritis of left knee: Postop day #1 left total knee arthroplasty -PT/OT -Pain management as written -DVT prophylaxis: SCDs, teds, aspirin 81 mg twice daily -A.m. labs: Hemoglobin at 10.8 from 12.8 preop, acute blood loss anemia due to surgical loss versus dilutional. Patient is asymptomatic -Discharge planning: Plan on discharge home with outpatient therapy. Plan on discharge home today as long as progresses well with therapy. Lab Results 04/06/23 04/06/23 04/06/23 Range/Units 05:44 09:49 11:36 WBC (4.8-10.8) K/ul RBC (4.70-6.10) M/uL Hgb (14.0-18.0) g/dl Hct (42.0-52.0) % MCV (80.0-100.0) fL MCH (25.0-34.0) pg MCHC (32.0-36.0) g/dL RDW Std Deviation (36.4-46.3) fL RDW Coeff of Manish (11.5-14.5) % Plt Count (130-400) K/uL MPV (9.4-12.4) fL Sodium (136-145) mmol/L Potassium (3.5-5.1) mmol/L Chloride (98-107) mmol/L Carbon Dioxide (21-32) mmol/L Anion Gap (3-11) BUN (6-23) mg/dl Creatinine (0.6-1.4) mg/dl Est Cr Clr Drug Dosing ml/min Est GFR ( Amer) ml/min Est GFR (Non-Af Amer) ml/min BUN/Creatinine Ratio (10-20) Glucose (70-99(Fasting)) mg/dl POC Glucose 151 H 164 H 159 H (70-99) mg/dl Calcium (8.6-10.3) mg/dl 04/06/23 04/06/23 04/07/23 Range/Units 16:41 21:00 05:56 WBC 9.88 (4.8-10.8) K/ul RBC 3.58 L (4.70-6.10) M/uL Hgb 10.8 L (14.0-18.0) g/dl Hct 32.3 L (42.0-52.0) % MCV 90.2 (80.0-100.0) fL MCH 30.2 (25.0-34.0) pg MCHC 33.4 (32.0-36.0) g/dL RDW Std Deviation 43.2 (36.4-46.3) fL RDW Coeff of Manish 13.1 (11.5-14.5) % Plt Count 268 (130-400) K/uL MPV 11.2 (9.4-12.4) fL Sodium 135 L (136-145) mmol/L Potassium 4.2 (3.5-5.1) mmol/L Chloride 105 (98-107) mmol/L Carbon Dioxide 25 (21-32) mmol/L Anion Gap 5 (3-11) BUN 18 (6-23) mg/dl Creatinine 0.67 (0.6-1.4) mg/dl Est Cr Clr Drug Dosing 113.9 ml/min Est GFR ( Amer) 115.2 ml/min Est GFR (Non-Af Amer) 99.4 ml/min BUN/Creatinine Ratio 26.9 H (10-20) Glucose 138 H (70-99(Fasting)) mg/dl POC Glucose 133 H 137 H (70-99) mg/dl Calcium 8.2 L (8.6-10.3) mg/dl 04/07/23 Range/Units 07:29 WBC (4.8-10.8) K/ul RBC (4.70-6.10) M/uL Hgb (14.0-18.0) g/dl Hct (42.0-52.0) % MCV (80.0-100.0) fL MCH (25.0-34.0) pg MCHC (32.0-36.0) g/dL RDW Std Deviation (36.4-46.3) fL RDW Coeff of Manish (11.5-14.5) % Plt Count (130-400) K/uL MPV (9.4-12.4) fL Sodium (136-145) mmol/L Potassium (3.5-5.1) mmol/L Chloride (98-107) mmol/L Carbon Dioxide (21-32) mmol/L Anion Gap (3-11) BUN (6-23) mg/dl Creatinine (0.6-1.4) mg/dl Est Cr Clr Drug Dosing ml/min Est GFR ( Amer) ml/min Est GFR (Non-Af Amer) ml/min BUN/Creatinine Ratio (10-20) Glucose (70-99(Fasting)) mg/dl POC Glucose 133 H (70-99) mg/dl Calcium (8.6-10.3) mg/dl Total Time Total Time Spent Total Time Spent (In Minutes): 20 Discharge Plan Discharge Items Patient Disposition: Home - Self-Care Reason For Visit: Left Knee Osteoarthritis Discharge Diagnosis: Left knee osteoarthritis Activity: Per Instructions section Non-emergency contact: Surgeon Call non-emergency contact if: you have any medication questions, your temperature is above 101, your wound has increased redness and your wound has increased drainage Follow-up/Referrals: Dom Del Valle DO [Primary Care Provider] - Diet: Regular Addtl Attending Provider Instructions: ACTIVITY RECOMMENDATIONS: SELF CARE INSTRUCTIONS AFTER TOTAL KNEE REPLACEMENT A. You may need to continue a physical therapy program after discharge from the hospital. There are several options available to you. Your doctor will assist you in selecting the best one for you. 1. An out-patient facility 2 to 3 times a week for therapy or home therapy. 2. Continue working on all exercises taught to you in the hospital. Your goals should be to increase bending of your knee to 90 degrees and beyond and to fully straighten your knee. B. You may progress at your own pace from walking with a walker or crutches to a cane; then to no assistive devices. C. Make walking a part of your daily routine. Be up as much as comfortable with rest periods throughout the day. Rest with leg elevation is very important. Use the ice wrap frequently for the first 3-4 weeks. D. There are no restrictions on activities. You may ride in a car, shop, participate in manager baby and all social activities. E. Wear the long elastic stockings (JOSE A hose) 20 hours a day for 2 weeks after surgery. They can be removed several times a day for laundering and for a bath. F. You may shower, no tub baths until cleared by your doctor. SPECIAL CARE INSTRUCTIONS: VERY IMPORTANT TO READ AND REVIEW A. There are a few signs you need to watch for after you are home. Call [facility] if you notice any of the followin. Increased severe knee pain. Some pain is expected especially when you exercise. 2. Increased swelling in your leg or knee; pain or swelling of the calf muscle in either lower leg. 3. Any fluid drainage from the incision. 4. Shortness of breath or chest pain. B. Please call [facility] at if you have any concerns or questions about your operation or recovery. The doctor or his nurse will return your call promptly. C. You must take antibiotics before dental work, bladder, bowel or other surgery. Your doctor will provide you with a permanent care to carry describing this precaution. IMPORTANT: * REMEMBER TO TAKE ASPIRIN, 81 MG, TWICE DAILY FOR 4 WEEKS UNLESS OTHERWISE DIRECTED. THIS IS YOUR BLOOD THINNER. * HIGH RISK PATIENTS MAY BE PRESCRIBED A STRONGER BLOOD THINNER. THIS WILL BE PROVIDED AT DISCHARGE. * CALL IF INCREASED PAIN, REDNESS, DRAINAGE OR FEVER GREATER THAT 101. * WEAR JOSE A HOSE 20 HOURS PER DAY FOR 2 WEEKS. There is a large suction dressing covering your incision. This will help pull any excess drainage from the wound and allow your incision to heal properly. You may shower with this if you can keep the unit outside of the shower. If any bleeding or leakage is noted please call your doctor's office. This will remain on your incision for 7 days and then should be removed. This can be done yourself or by the home nursing staff if applicable. The entire unit is disposable once removed. Once removed, keep incision clean and dry. If redness or drainage is noted, please call your surgeon. . IF INCISION IS LEAKING THROUGH DRESSING, CALL THE OFFICE . FOLLOW UP VISIT: If appointment is not already scheduled: Please call [facility] to make a follow-up appointment for 2 weeks after your surgery at . Stand-Alone Forms: My [facility] [employer], Smoking Cessation Medications and DC Order Prescriptions: New acetaminophen [Tylenol Extra Strength] 500 mg Tablet 1,000 mg PO Q8 Qty: 60 0RF aspirin 81 mg Tablet,Delayed Release (Dr/Ec) 81 mg PO BID Qty: 60 0RF oxycodone 5 mg Tablet 5 - 10 mg PO .Q4h-6h MDD 6 PRN (Reason: pain) Qty: 30 0RF Rx Instructions: Ongoing therapy, Dr. Back supervising. Date of surgery 04/06/2023 meloxicam 15 mg tablet 15 mg PO DAILY Qty: 30 0RF cefadroxil 500 mg capsule 500 mg PO BID Qty: 28 0RF Continued multivitamin Tablet 1 tab PO QAM metformin 500 mg Tablet 1,000 mg PO BID atorvastatin 10 mg Tablet 10 mg PO QAM levothyroxine 25 mcg Tablet 25 mcg PO QAM tamsulosin 0.4 mg Capsule 0.4 mg PO QAM finasteride 5 mg Tablet 5 mg PO QAM glipizide 5 mg Tablet 5 mg PO BID Discontinued acetaminophen [Tylenol Extra Strength] 500 mg tablet 1,000 mg PO Q8 PRN (Reason: Pain) aspirin 81 mg Tablet,Delayed Release (Dr/Ec) 81 mg PO BID Qty: 60 0RF celecoxib [Celebrex] 200 mg Capsule 200 mg PO BID Qty: 60 0RF Discharge Orders: Discharge Order (Routine); Ordered 04/07/23 Ordered By: Neto Johnson Admission Data Admit Date/Time: 04/06/23 09:49 Attending Provider: Ace Back Admit Provider: Ace Back Primary Care Provider: Dom Del Valle Other Providers: Andrew Fong Other Interventions: Discharge Summary Assessment (RN) Last Done: 04/07/23 10:03
== END 2023-04-07 10:41 | disposition home or self-care (01) ==
LOC: ASU 05:10 → 3E 05:10